=== PATIENT | male | born 1940 | race Caucasian/White ===

== ENCOUNTER 2018-03-05 10:21 | Inpatient (IN) ==
[~2018-03-05 10:21] MED LIST: Atropine Inj 1 MG/10 ML Syringe IV.PUSH ONE
[2018-03-05] MEDS ORDERED: Iohexol 350 MG/ML 100 ML Vial (for Cath Lab) IVCONTRAST ONE (10:22)
[2018-03-05 11:41] LABS: Baso % (Auto) 0.5 % (0.0-2.0); Eos # (Auto) 0.2 th/mm3 (0.0-0.4); Eos % (Auto) 2.8 % (0.0-4.0); Hematocrit 41.7 % (39.0-51.0); Hemoglobin 13.9 gm/dL (13.0-17.0); Lymph # (Auto) 2.8 th/mm3 (1.0-4.8); Lymph % (Auto) 31.7 % (9.0-44.0); Mean Corpuscular HGB Conc 33.4 % (32.0-36.0); Mean Corpuscular Hemoglobin 30.7 pg (27.0-34.0); Mean Corpuscular Volume 92.1 fL (80.0-100.0); Mean Platelet Volume 7.2 fL (7.0-11.0); Mono # (Auto) 0.5 th/mm3 (0.0-0.9); Mono % (Auto) 6.1 % (0.0-8.0); Neut # (Auto) 5.2 th/mm3 (1.8-7.7); Neut % (Auto) 58.9 % (16.0-70.0); Platelet Count 297 th/mm3 (150-450); Red Blood Count 4.53 mil/mm3 (4.50-5.90); Red Cell Distribution Width 13.6 % (11.6-17.2); White Blood Count 8.8 th/mm3 (4.0-11.0)
[2018-03-05 11:50] LABS: Activated Partial Thrombo Time 30.7 sec (24.3-30.1); INR 1.1 Ratio; Prothrombin Time 10.7 sec (9.8-11.6)
[2018-03-05 11:59] LABS: Calcium 8.8 mg/dL (8.5-10.1); Carbon Dioxide 27.7 meq/L (21.0-32.0); Potassium 3.8 meq/L (3.5-5.1)
[2018-03-05] MEDS ORDERED: Heparin/NS PF Inj 1,500 ML ONE (13:47)
[2018-03-05] MEDS ORDERED: Heparin 10,000 UNITS/10 ML Vial (for IV use) ONE (13:47)
[2018-03-05] MEDS ORDERED: fentaNYL Citrate Inj 100 MCG/2 ML Ampul ONE (13:47)
[2018-03-05] MEDS ORDERED: Lidocaine PF 1% Inj 30 ML Vial ONE (14:27)
--- NOTE | 2018-03-05 15:57 | CATHPROC ---
[facility] HIS Report Study Information Study Number Admission Scheduled Start Study Start [id number] Mar 05 2018 10:21AM 03/05/2018 Mar 05 2018 1:37PM [place] [facility] Cardiac Catheterization Admit Source Facility Department Other [facility] Physician and Clinical Staff Initial Jose Sun Waiter/Waitress Take Out Tom Dupont RN Recorder Sana Arceo,RT(R) Scrub Marie Pond,RT(R) Procedures Performed Procedure Location (Site) Vessel Name Angiogram LV Asc. Aorta (A) Aorta Angiogram LV LV Ventricle Coronary Angiograms LCA Left Coronary Wire insertion Fem Art (left) Femoral Art Wire insertion Fem Art (right) Femoral Art Equipment Time Field Account Director Description Size Mfg Part Number Used/Scraped [id number] 13:53 RECINOS JAQUEZ SWAN FILI CATHETER FR 7 Used *[id number] TRANSDUCER, TRUWAVE [id number] 13:53 RECINOS JAQUEZ * Used W/STOCKCOCK *[id number] TRANSDUCER, TRUWAVE [id number] 13:53 RECINOS JAQUEZ * Used W/STOCKCOCK *[id number] 534-576T *[id number] 534-548T *[id number] [id number] *[id number] WIRE, HYDROSTEER 150CM [id number] 14:25 DAIG[employer] 150CM Used ANGLED GLIDE *[id number] 13:53 Squla BLANKET,WARM AIR CCL * Used *[id number] 13:53 S[employer]ula PACK, CCL CUSTOM * Used *[id number] 13:53 Lakoo PACER PEN, SKIN DUAL W/ RULER * Used *[id number] 13:54 Handpay 30 BOB INDEFLATOR Used *[id number] [id number] 14:19 Handpay PIGTAIL ANG. CATHETER FR 5 Used *[id number] 13:54 Handpay SHEATH, FR6.5 PRELUDE 11CM FR 6.5 038ACT Used *[id number] 13:53 Handpay WIRE, 3MMJ .035 180CM 180CM Used *[id number] PROBE COVER, STERILE [id number] 13:53 [employer] MEDICAL * Used ULTRASOUND W/ GEL *[id number] 13:53 NAMIC MANIFOLD, 2 PORT * Used *[id number] 13:53 NAMIC MANIFOLD, 4 PORT * Used *[id number] 13:53 NAMIC TUBING, HIGH PRESSURE 48" 48" Used *[id number] 13:53 NYCOMED OMNIPAQUE, 350 MG, 150ML 150ML [id number] Used 14:16 NYCOMED OMNIPAQUE, 350 MG, 50ML 50ML [id number] Used 14:16 NYCOMED OMNIPAQUE, 350 MG, 50ML 50ML [id number] Used [id number] 13:53 TERUMO MEDICAL SHEATH, FR5 TERUMO (10CM) FR 5 Used *[id number] 13:53 TERUMO MEDICAL SHEATH, FR7 TERUMO (10CM) FR 7 Used *[id number] History: Current Medications Medication Dosage/Unit Route Frequency Last Date/Time Taken LOPRESSOR ASA History: Allergies Allergy Reaction No Known Allergies History: Risk Factors Family History of Hypertension Dyslipidemia Previous IA Previous Heart Failure Premature CAD Yes No No No No Prior Valve Prior PCI Prior CABG Surgery No No No Cerebrovascular Peripheral Artery Chronic Lung On Dialysis Diabetes Disease Disease Disease No Yes No No No History: Other Current Smoker Method Quit No Cigarettes 20 Years Ago Labs Hgb (g/dl) Hct (%) WBC (l/cumm) Platelets (thousands) 11.60-17.00 35.00-51.00 4.00-11.00 150.00-450.00 13.9 41.7 8.8 297 Glucose (mg/dl) BUN (mg/dl) Creatinine (mg/dl) BUN:Creatinine (1:x) 74.00-106.00 7.00-18.00 0.50-1.30 10.00-20.00 91 22 1.1 20 Na (meq/l) K (meq/l) 136.00-145.00 3.50-5.10 138 3.8 INR (PTT:PT) 0.90-1.10 1.1 CPK-MB (ng/ML) 0.50-3.60 Not Drawn Medication Medication Total Dose (Bolus/Oral) Medication Total Dosage/Unit 1% XYLOCAINE 40 mL FENTANYL 100 mcg HEPARIN 5000 units OXYGEN 1 l/min VERSED 3 mg Medications (Bolus/Oral) Medication Time Given Dosage/Unit Administered By Reason 1% XYLOCAINE 03/05/2018 2:07:00 PM 20 mL Marie Pond 20 mL 1% XYLOCAINE given in lab by Marie Pond, RT(R) in Right Groin via Subcutaneous. VERSED 03/05/2018 2:07:52 PM 2 mg Cresencio, Tom 2 mg VERSED given in lab by Tom Dupont RN in Left Antecubital via Peripheral IV. Ordered by Jose Styles. FENTANYL 03/05/2018 2:08:17 PM 50 mcg Cresencio, Tom 50 mcg FENTANYL given in lab by Tom Dupont RN in Left Antecubital via Peripheral IV. Ordered by Jose Fry. VERSED 03/05/2018 2:11:27 PM 1 mg Cresencio, Tom 1 mg VERSED given in lab by Tom Dupont RN in Left Antecubital via Peripheral IV. Ordered by Jose Styles. FENTANYL 03/05/2018 2:13:45 PM 50 mcg Cresencio, Tom 50 mcg FENTANYL given in lab by Tom Dupont RN in Left Antecubital via Peripheral IV. Ordered by Jose Fry. OXYGEN 03/05/2018 2:18:31 PM 1 l/min Cresencio, Tom 1 l/min OXYGEN given in lab by Tom Dupont RN via Nasal. 1% XYLOCAINE 03/05/2018 2:27:33 PM 20 mL Jose Abernathy 20 mL 1% XYLOCAINE given in lab by Jose Abernathy in Left Groin via Subcutaneous. HEPARIN 03/05/2018 2:31:05 PM 3000 units Cresencio, Tom 3000 units HEPARIN given in lab by Tom Dupont RN in Left Antecubital via Peripheral IV. Ordered by Jose Abernathy. HEPARIN 03/05/2018 2:48:51 PM 2000 units Cresencio, Tom 2000 units HEPARIN given in lab by Tom uDpont RN in Left Antecubital via Peripheral IV. Ordered by Jose Abernathy. Medication (Drip) Medication Time Given Dosage/Unit Concentration/Unit Diluent (ml) Solution IV Solutions 03/05/2018 1:47:37 PM 50 mL (IV) NaCl .9 IV Solutions given in lab by Tom Dupont RN in Left Antecubital via Peripheral IV. Pump/Drip Flow u sing NaCl .9. Initial Case Assessment Cardiovascular Chest Pain 0 Edema Present Skin color Skin None Normal Warm Dry Circulatory - Right Pulses Posterior Tibial Femoral 1 1 Scale (0,1,2,3,4,d) Circulatory - Left Pulses Posterior Tibial Femoral 1 1 Scale (0,1,2,3,4,d) Neurological State Oriented to time-place- Alert Moves all extremities person Chronological Log Time Study Chronological Log 13:41:05 Patient arrived via Bed. 13:47:15 Patient Name, D.O.B, / Armband Verified By R.N. 13:47:20 Consent signed by the physician and the patient and verified by the [facility] staff. 13:47:22 Pre-op and post- op instructions given; patient acknowledges understanding of instructions . 13:47:24 Presedation assessment performed by [facility] RN. 13:47:26 Patient has been NPO for More than 6Hrs. 13:47:27 Skin Breakdown- none per pt 13:47:28 Patient Warmer Placed on the Table. 13:47:30 Gala Prominences Protected 13:47:32 A # 20 IV was noted in the Antecubital (left). Grade = 0 13:47:37 IV Solutions given in lab by Tom Dupont, RN in Left Antecubital via Peripheral IV. Pump/ Drip Flow using NaCl .9. 13:47:38 History and physical on the chart or being dictated. Assessment: Initial Case, Chest Pain=0, Edema=None, Color=Normal, Skin = Warm, Dry Right Pulses: Post Tib=1, Femoral=1 13:47:39 Left Pulses: Post Tib=1, Femoral=1 Neurological: State=Alert, Ox3, ORELLANA Vitals capture started with the following parameters, Patient=Adult, Interval=5 min, Initial P clxlajb=967 mmHg, 13:52:57 Deflation Rate=5 mmHg, Cuff placed on Right Arm 13:53:40 HR=72 bpm, IMOH=638/75 mmhg, SpO2=97.0 %, Resp=20 B/min 13:55:08 Reference ECG taken 13:56:02 Bilateral groins prepped with 2% chlorhexidine, and draped after a 3 minute waiting time. 13:58:31 HR=56 bpm, TVCN=470/86 mmhg, SpO2=99.0 %, Resp=21 B/min 14:01:53 paged 14:03:34 HR=70 bpm, HSTJ=192/79 mmhg, BbM3=186.0 %, Resp=18 B/min 14:07:00 20 mL 1% XYLOCAINE given in lab by Marie Pond RT(R) in Right Groin via Subcutaneous. 14:07:52 2 mg VERSED given in lab by Tom Dupont RN in Left Antecubital via Peripheral IV. Ordered by Jose Abernathy. 14:08:17 50 mcg FENTANYL given in lab by Tom Dupont RN in Left Antecubital via Peripheral IV. Ord ered by Jose Abernathy. 14:09:04 FJOL=498/96 mmhg, SpO2=99.0 %, Resp=20 B/min 14:11:27 1 mg VERSED given in lab by Tom Dupont RN in Left Antecubital via Peripheral IV. Ordered by Jose Abernathy. 14:12:21 Pressure channel 1 zeroed. 14:13:18 MD arrived. 14:13:34 HR=69 bpm, RSMK=989/66 mmhg, SpO2=95.0 %, Resp=8 B/min 14:13:45 50 mcg FENTANYL given in lab by Tom Dupont RN in Left Antecubital via Peripheral IV. Ord ered by Jose Abernathy. 14:18:31 1 l/min OXYGEN given in lab by Tom Dupont RN via Nasal. 14:18:33 HR=62 bpm, NIBP=70/43 mmhg, SpO2=92.0 %, Resp=9 B/min 14:19:17 NIBP STAT measurement started. 14:19:43 HR=68 bpm, NIBP=77/47 mmhg, SpO2=97 %, Resp=8 B/min Time Out. Correct patient, correct procedure, correct physician, labs, allergies, and equipment verified with supervisor labor gang 14:20:47 team present. Fire risk assesment completed (see hard stop sheet for coding). Time Out Conc urred by MD and individual staff in procedure. 14:20:55 Case Start 14:21:54 Access site was Right Femoral Vein. 14:22:01 A SHEATH, FR7 TERUMO (10CM) FR 7 was advanced into the Fem Vein (right) using the Percutane ous technique. 14:23:26 HR=69 bpm, NIBP=82/57 mmhg, SpO2=99.0 %, Resp=10 B/min 14:24:41 Access site was Right Femoral Artery. 14:25:28 A WIRE, HYDROSTEER 150CM ANGLED GLIDE 150CM was inserted via Fem Art (right). 14::44 Wire removed 14:27:13 Unable to advance wire in right fem art access, access aborted, manual pressure held 14:27:33 20 mL 1% XYLOCAINE given in lab by Jose Abernathy in Left Groin via Subcutaneous. 14:28:27 HR=68 bpm, NIBP=90/57 mmhg, AcM2=528.0 %, Resp=8 B/min 14:29:01 Access site was Left Femoral Artery. 14:29:13 A WIRE, HYDROSTEER 150CM ANGLED GLIDE 150CM was inserted via Fem Art (left). 14:29:48 A SHEATH, FR5 TERUMO (10CM) FR 5 was advanced into the Fem Art (left) using the Percutaneou s technique. 14:31:01 A SWAN FILI CATHETER FR 7 was inserted via Fem Vein (right) 14:31:05 3000 units HEPARIN given in lab by Tom Dupont RN in Left Antecubital via Peripheral IV. Ordered by Jose Abernathy. 14:33:30 HR=67 bpm, NIBP=81/53 mmhg, SpO2=99.0 %, Resp=7 B/min 14:36:39 Pressure channel 2 zeroed. 14:38:29 HR=67 bpm, NIBP=79/49 mmhg, SpO2=99.0 %, Resp=17 B/min A PIGTAIL ANG. CATHETER FR 5 was advanced over a wire. OMNIPAQUE, 350 MG, 150ML 150ML was used for 14:39:05 injections. 14:39:23 [place] Wire removed 14:39:54 A WIRE, 3MMJ .035 180CM 180CM was inserted via Fem Art (left). 14:40:44 Wire removed Recorded Pressure: Ao, HR=69, Condition=Condition 1 14:41:52 (Aorta) Ao 88/50/66 14:42:38 The Asc. Aorta (A) was injected at 20 cc/sec for a total of 40. OMNIPAQUE, 350 MG, 50ML 50M L used. 14:43:29 HR=72 bpm, NIBP=86/55 mmhg, SpO2=99.0 %, Resp=16 B/min 14:45:23 A WIRE, 3MMJ .035 180CM 180CM was inserted via Fem Art (left). 14:46:28 Wire removed 14:47:06 Saturation: Site=Ao (Aorta) , O2=94.5 %, Hgb=13.9 gm/dl, Condition=Condition 1. Used in amadou culation. Recorded Pressure: LV, HR=71, Condition=Condition 1 14:48:02 (Left Ventricle) LV 119/5/13 14:48:30 HR=69 bpm, NIBP=99/61 mmhg, SpO2=99.0 %, Resp=14 B/min 14:48:41 Saturation: Site=PA (Pulmonary Artery) , O2=73.2 %, Hgb=13.9 gm/dl, Condition=Condition 1. Used in calculation. 14:48:51 2000 units HEPARIN given in lab by Tom Dupont RN in Left Antecubital via Peripheral IV. Ordered by Jose Abernathy. Recorded Pressure: LV, PCW, HR=71, Condition=Condition 1 14:48:57 (Left Ventricle) LV 126/6/13, (Pulmonary Capillary Wedge) PCW 15/13/10 Recorded Pressure: LV, MPA, HR=69, Condition=Condition 1 14:49:19 (Left Ventricle) LV 132/7/16, (Main Pulmonary Artery) MPA 29/13/21 Recorded Pressure: LV, RV, HR=70, Condition=Condition 1 14:50:09 (Left Ventricle) LV 133/7/19, (Right Ventricle) RV 38/0/7 14:50:42 Saturation: Site=RV (Right Ventricle) , O2=73 %, Hgb=13.9 gm/dl, Condition=Condition 1. Use d in calculation. 14:54:08 HR=69 bpm, POPS=273/67 mmhg, DcG9=107.0 %, Resp=10 B/min Thermo CO: CO=4.7 l/m, HR=70 bpm, Condition=Condition 1. Used in calculation. 14:54:21 Equipment: Description and Size=SWAN FILI CATHETER FR 7, Type=Bath Probe, CC=0.579 Injectant: Temp=19.0 - 22.0 Celsius, Volume=10.0 ml Thermo CO: CO=4.5 l/m, HR=71 bpm, Condition=Condition 1. Used in calculation. 14:54:55 Equipment: Description and Size=SWAN FILI CATHETER FR 7, Type=Bath Probe, CC=0.579 Injectant: Temp=19.0 - 22.0 Celsius, Volume=10.0 ml Thermo CO: CO=4.7 l/m, HR=70 bpm, Condition=Condition 1. Used in calculation. 14:55:23 Equipment: Description and Size=SWAN FILI CATHETER FR 7, Type=Bath Probe, CC=0.579 Injectant: Temp=19.0 - 22.0 Celsius, Volume=10.0 ml 14:57:48 Saturation: Site=RVm (Mid Right Ventricle) , O2=74.6 %, Hgb=13.9 gm/dl, Condition=Condition 1. Used in calculation. Recorded Pressure: LV, RV, HR=71, Condition=Condition 1 14:58:13 (Left Ventricle) LV 133/5/16, (Right Ventricle) RV 36/-1/6 14:58:34 HR=70 bpm, TGPE=697/71 mmhg, EyM2=436.0 %, Resp=15 B/min 14:58:50 Saturation: Site=IVC (Inferior Vena Cava) , O2=75.4 %, Hgb=13.9 gm/dl, Condition=Condition 1. Used in calculation. Recorded Pressure: LV, RA, HR=72, Condition=Condition 1 14:59:16 (Left Ventricle) LV 144/6/17, (Right Atrium) RA 4/3/2 14:59:32 Saturation: Site=Bladimir (Mid Right Atrium) , O2=75.7 %, Hgb=13.9 gm/dl, Condition=Condition 1. Used in calculation. 15:01:13 Saturation: Site=SVC (Superior Vena Cava) , O2=73.5 %, Hgb=13.9 gm/dl, Condition=Condition 1. Used in calculation. 15:03:05 Nyssa Fili Catheter Removed 15:03:39 HR=73 bpm, DBKZ=747/61 mmhg, SpO2=98.0 %, Resp=11 B/min 15:04:21 The LV was injected at 10 cc/sec for a total of 30. OMNIPAQUE, 350 MG, 50ML 50ML used. 15:06:00 A WIRE, 3MMJ .035 180CM 180CM was inserted via Fem Art (left). Recorded Pressure: LV, Ao, HR=73, Condition=Condition 1 15:07:57 (Left Ventricle) LV 150/8/18, (Aorta) Ao 118/59/85 15:08:34 HR=72 bpm, FQKU=140/70 mmhg, LiU4=401.0 %, Resp=13 B/min 15:11:40 Catheter was removed A JL 4.0 INFINITI CATHETER FR 5 was advanced over a wire. OMNIPAQUE, 350 MG, 150ML 150ML was us ed for 15:11:44 injections. 15:13:37 HR=69 bpm, YVJM=033/68 mmhg, OyO1=351.0 %, Resp=13 B/min 15:15:52 The LCA was injected and visualized at various angles. OMNIPAQUE, 350 MG, 150ML 150ML used . 15:18:36 HR=72 bpm, IBPX=758/82 mmhg, SpO2=97.0 %, Resp=12 B/min 15:21:02 Catheter was removed A AR MOD INFINITI CATHETER FR 5 was advanced over a wire. OMNIPAQUE, 350 MG, 150ML 150ML was us ed for 15:21:15 injections. 15:23:37 HR=74 bpm, AAUG=109/82 mmhg, SpO2=98 %, Resp=15 B/min 15:25:41 Catheter was removed A 3DRC INFINITI CATHETER FR 5 was advanced over a wire. OMNIPAQUE, 350 MG, 150ML 150ML was used for 15:25:49 injections. 15:27:33 Catheter was removed 15:27:34 Case End (Physician broke scrub) 15:28:40 HR=74 bpm, OHNF=816/76 mmhg, SpO2=99.0 %, Resp=16 B/min 15:33:39 HR=75 bpm, QEEM=775/76 mmhg, SpO2=97.0 %, Resp=17 B/min 15:34:36 In the Fem Vein (right) the SHEATH, FR7 TERUMO (10CM) FR [address] by Quadrat, [place]. 15:34:36 In the Fem Art (left) the SHEATH, FR5 TERUMO (10CM) FR [address] by Carolyn Abernathy. 15:38:27 Activated Clotting Time Drawn 15:38:42 HR=72 bpm, KGDK=292/76 mmhg, YfC0=278.0 %, Resp=16 B/min 15:42:12 Sterile dressing applied to site 15:42:13 No case complications noted. 15:42:15 Cine recording checked. 15:42:16 Holding Area notified. 15:42:27 A Left and Right Heart Cath was performed. 15:43:39 HR=74 bpm, QYTJ=171/81 mmhg, SpO2=99.0 %, Resp=24 B/min 15:45:40 ACT (Normal Range 90-180) = 248 15:48:05 Vitals capture stopped. 16:00:28 Patient moved to [facility] End Study - Contrast Media Used In Study Contrast Total Opened (mL) Total Used (mL) Total Wasted (mL) Omnipaque 250 155 95 End Study - Maximum Contrast Load Max Contrast Load (mL) 317.8 End Study - Radiation Exposure Fluoro Time (minutes) 14.1 End Study - Patient Disposition Complications Transferred To Interventional Outcome No Telemetry Bed No attempt made
[2018-03-05] MEDS ORDERED: Dextrose 50% in Water Syringe 50 ML ONE (17:38)
[2018-03-05] MEDS ORDERED: DOPamine 800 MG/500 ML Premix 800 MG/500 ML PLAST..BAG IV.CONT PRN (17:58)
[2018-03-05] MEDS ORDERED: ceFAZolin 2 GM Premix Inj 2 GM/50 ML PIGGYBACK IV.SIG SCH (18:00)
[2018-03-05] MEDS ORDERED: SODIUM CHLOR 0.9% IV.SIG SCH (18:00)
[2018-03-05] MEDS ORDERED: VANCOMYCIN IV.SIG SCH (18:00)
[2018-03-05 18:03] LABS: Baso % (Auto) 0.4 % (0.0-2.0); Eos # (Auto) 0.3 th/mm3 (0.0-0.4); Eos % (Auto) 2.7 % (0.0-4.0); Hematocrit 35.7 % (39.0-51.0); Hemoglobin 11.7 gm/dL (13.0-17.0); Lymph # (Auto) 3.8 th/mm3 (1.0-4.8); Lymph % (Auto) 39.9 % (9.0-44.0); Mean Corpuscular HGB Conc 32.9 % (32.0-36.0); Mean Corpuscular Hemoglobin 30.5 pg (27.0-34.0); Mean Corpuscular Volume 92.7 fL (80.0-100.0); Mono # (Auto) 0.4 th/mm3 (0.0-0.9); Mono % (Auto) 4.7 % (0.0-8.0); Neut # (Auto) 4.9 th/mm3 (1.8-7.7); Neut % (Auto) 52.3 % (16.0-70.0); Platelet Count 254 th/mm3 (150-450); Red Blood Count 3.85 mil/mm3 (4.50-5.90); Red Cell Distribution Width 13.5 % (11.6-17.2); White Blood Count 9.4 th/mm3 (4.0-11.0)
--- NOTE | 2018-03-05 18:13 | MR ---
cc: Jose Abernathy MD DATE: 03/05/2018 INDICATION: Worsening angina, atypical angina, class IV angina, severe aortic stenosis. PROCEDURE PERFORMED: 1. Retrograde left and right heart catheterization with left ventriculography, selective coronary angiography and thermodilution cardiac output determination. 2. Thoracic aortography including aortic root, ascending thoracic aorta, aortic arch and descending thoracic aorta. 3. Saturation run for evaluation of cardiac shunt. 4. Moderate sedation. ACCESS SITE: Right femoral vein and left femoral artery. Right femoral artery was severely diseased and the right iliac artery could not be negotiated retrogradely. EQUIPMENT USED: A 5-[place]icar[place] pigtail catheter, 5-[place]uan JL4 and AR modified coronary catheters, [place] catheter, 3DRC catheter. MEDICATIONS: Versed IV, fentanyl IV, heparin IV. CONTRAST: Omnipaque, 155. COMPLICATIONS: None. ESTIMATED BLOOD LOSS: Less than 10 mL. METHOD OF HEMOSTASIS: Manual compression. RESULTS: A. HEMODYNAMICS: Heart rate 77 beats per minute. Left ventricular end-diastolic pressure 12 mmHg. Left ventricle 150/12, aorta 118/61/83. There was no gradient between the apical and mid portion of the left ventricle. Mean aortic valve gradient 30 mmHg, peak gradient 32 mmHg, aortic valve area 0.76 cm2. Mean pulmonary capillary wedge pressure 10 mmHg. Pulmonary artery 33/13/21, right ventricle 33/3. Right atrium: Mean right atrial pressure 2 mmHg. Saturations: Aorta 94.5. Pulmonary artery 73.2. Right ventricle base 73.0 Right ventricle mid 74.6. IVC 75.4. Right atrium mid 75.7. SVC 73.5. B. LEFT VENTRICULOGRAPHY AND THORACIC AORTOGRAPHY: Ejection fraction 50% with apical akinesis, mild mitral regurgitation. There was evidence of trace aortic insufficiency. C. CORONARY ANGIOGRAPHY: Left main coronary artery diffuse 70% stenosis. Left anterior descending artery patent. First diagonal artery 70% ostial stenosis. Second diagonal artery is patent. Left circumflex artery is 80% in the proximal portion and is totally occluded in the midportion. OM1 has 70% ostial stenosis. Right coronary artery is totally occluded at its ostium, severely calcified and fills by left to right collaterals. DIAGNOSES: 1. 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 2. Borderline normal left ventricular systolic function. 3. Severe aortic stenosis. DISPOSITION: Mr. Alcantara was found to have evidence of severe multivessel coronary artery disease with severe stenosis of the left main coronary artery, total occlusion of the mid left circumflex artery and ostial right coronary artery with distal vessels partially filling by collaterals. There was also evidence of severe aortic stenosis. Cardiothoracic surgery was consulted for coronary artery bypass and aortic valve replacement. MD JAMEY Gonsalez/rw/john , 03:52 PM , 04:44 PM MTDAliyah
[2018-03-05] MEDS: Sod Chloride 0.9% Inj 1,000 ML IV.SIG SCH (18:34)
[2018-03-05] MEDS ORDERED: Metoprolol Tartrate 25 MG Tablet PO SCH (21:00)
--- NOTE | 2018-03-05 21:31 | P.CONCC ---
History of Present Illness Service: Critical Care Medicine Consult date: 03/05/18 Requesting Physician: Jose Abernathy Reason for Consult: symptomatic bradycardia Primary Care Provider: Anthony Keating DO Family Provider: Anthony Keating DO History of Present Illness: 78yM presents as rapid response for symptomatic bradycardia. I arrived at bedside in CPCU for patient with acute change in mental status. Per very brief chart review, patient had left and right heart catheterization with 70% left main, 80% circ, 100% RCA occlusions and severe aortic stenosis, mean gradient 31 mmHg per cath report. nurses at bedside pulling left femoral arterial sheath when patient suddenly had decreased level of consciousness and bradycardia down to HR 31. blood pressure checked manually 80 sbp. Patient was responsive but somnolent and endorsed sudden-onset fatigue. denies chest pain, sob. given active coronary lesions, I administered 100 mcg atropine to slowly raise heart rate without causing myocardial ischemia. heart rate improved to 70s and sbp improved to 110s-120s. patient's fatigue improved. I instructed nursing staff to move patient to CVICU, leave right femoral venous sheath in place in order to administer vasoactive substances if needed, ordered dopamine to keep HR > 60 , map > 65 mmHg. Also, sent stat cbc to rule out acute RP hemorrhage. Most likely etiology is vagal episode complicated by coronary ischemia and severe A.S. When I left the bedside, patient's symptoms had resolved with therapy. Due to the emergent nature of the consult, complete ROS is unobtainable and complete PMHx, PSHx, FHx, SocHx unobtainable and reviewed in the chart briefly. Review of Systems other (unobtainable due to emergent nature of consult) [facility] History History Provided By: Patient, Medical Record - Medical History Medical History: Medical History (Last Reviewed 03/05/18 @ 21:26 by Mario Rivera MD) Aortic insufficiency Aortic stenosis Hypertension Mitral regurgitation Murmur Skin cancer - Social History I have reviewed the patient's Social History: Yes - Tobacco History Smoking Status: Former smoker - Alcohol History How Often Do You Have a Drink Containing Alcohol: Never Medications and Allergies Active Medications: Active Medications Aspirin (Aspirin Chew) 81 mg PO DAILY TIM Hydrochlorothiazide (Hydrodiuril) 25 mg PO DAILY TIM Sodium Chloride (Ns Inj) 1,000 mls @ 30 mls/hr IV.SIG .Q24H TIM Last Admin: 03/05/18 18:34 Dose: Not Given Dopamine HCl/Dextrose (Dopamine 800 Mg/500 Ml Premix) 800 mg in 500 mls @ 7.864 mls/hr IV.CONT TITRATE PRN; Protocol PRN Reason: Per Protocol Metoprolol Tartrate (Lopressor) 25 mg PO BID TIM Sodium Chloride (Ns Flush) 2 ml IV.FLUSH BID TIM Sodium Chloride (Ns Flush) 2 ml IV.FLUSH PRN PRN PRN Reason: FLUSH AFTER USING IV ACCESS Terbutaline Sulfate (Brethine Inj) 1 mg SQ ONCE PRN PRN Reason: Extravasation Allergies Allergy/AdvReac Type Severity Reaction Status Date / Time No Known Allergies Allergy Unverified 03/05/18 11:24 Home Medications Medication Instructions Recorded Confirmed Type aspirin [Aspirin Low Dose] 81 mg PO DAILY 03/05/18 03/05/18 History coenzyme Q10 [CoQ-10] 200 mg PO DAILY 03/05/18 03/05/18 History hydrochlorothiazide 25 mg PO DAILY 03/05/18 03/05/18 History metoprolol tartrate 25 mg PO BID 03/05/18 03/05/18 History Physical Exam Vital signs: Vital Signs 03/05/18 11:09 Temperature 36.6 C Respiratory Rate 18 Blood Pressure 152/93 H Pulse Oximetry 99 Intake & Output 03/05/18 03/05/18 03/06/18 06:59 18:59 06:59 Intake Total 20 / 20 Balance 20 / 20 Weight 69.9 kg Intake: IV 20 / 20 Heparin/NS PF Inj 1,500 ML @ 0 20 / 20 mls/hr .ROUTE .[employer] ONE Rx#: [id number] Other: Weight On Admission 69.9 kg Narrative: gen: elderly male in distress, lying in bed heent: nc. at. perrl. mmm. neck: no jvd. trachea midline. chest: equal chest rise. nrb in place. spo2 98% cv: bradycardic rate of 31, regular rhythm. 12-lead EKG reviewed: sinus bradycardia. sbp 70s on my initial eval. abd: soft, nontender, nondistended, no guarding. extr: left groin with puncture site active pressure being held by nurse- recent arterial sheath pull. no evidence of hematoma. right venous sheath in place, no hematoma, dressing intact. extremities warm, well perfused. no edema. neuro: RASS -2. arouses to voice. follows commands. protects airway. Assessment and Plan - Assessment and Plan Plan: Assessment: 78yM with symptomatic bradycardia likely secondary to vagal response compounded by critical coronary ischemia and severe aortic stenosis. Active Problems: Symptomatic Bradycardia Severe aortic stenosis Critical multivessel coronary ischemia Plan: admit to ICU dopamine if needed to keep HR > 60, map > 65mmHg check cbc now and at midnight atropine if needed for further episodes of bradycardia telemetry agree with CT surgery consultation I have discussed this with Dr. Abernathy who agrees with the plan of care. Critical care will continue to follow while patient is in the ICU. Critical care time: 33 minutes, exclusive of separately billable procedures. specifically, actively managed hemodynamically unstable symptomatic bradycardia which was life-threatening.
--- NOTE | 2018-03-05 22:30 | ECG ---
Date Performed: 03/05/2018 Time Performed: 17:43:48 PTAGE: 78 years EKG: Sinus rhythm . Inferior T wave changes are nonspecific Abnormal ECG NO PREVIOUS TRACING DOCTOR: Jose Abernathy Interpretating Date/Time 03/05/2018 22:28:48
[2018-03-06 00:17] LABS: Hematocrit 36.6 % (39.0-51.0); Hemoglobin 12.3 gm/dL (13.0-17.0)
[2018-03-06] MEDS ORDERED: Metoprolol Tartrate 25 MG Tablet PO SCH (05:00)
[2018-03-06 05:38] LABS: Baso # (Auto) 0.1 th/mm3 (0.0-0.2); Baso % (Auto) 0.4 % (0.0-2.0); Eos # (Auto) 0.2 th/mm3 (0.0-0.4); Eos % (Auto) 1.4 % (0.0-4.0); Hematocrit 39.1 % (39.0-51.0); Hemoglobin 13.1 gm/dL (13.0-17.0); Lymph # (Auto) 2.4 th/mm3 (1.0-4.8); Lymph % (Auto) 19.7 % (9.0-44.0); Mean Corpuscular HGB Conc 33.4 % (32.0-36.0); Mean Corpuscular Hemoglobin 30.4 pg (27.0-34.0); Mean Corpuscular Volume 91.1 fL (80.0-100.0); Mean Platelet Volume 7.1 fL (7.0-11.0); Mono # (Auto) 0.7 th/mm3 (0.0-0.9); Neut # (Auto) 8.9 th/mm3 (1.8-7.7); Neut % (Auto) 72.5 % (16.0-70.0); Platelet Count 271 th/mm3 (150-450); Red Cell Distribution Width 13.7 % (11.6-17.2); White Blood Count 12.3 th/mm3 (4.0-11.0)
[2018-03-06 06:03] LABS: Calcium 8.1 mg/dL (8.5-10.1)
[2018-03-06] MEDS ORDERED: Acetaminophen 325 MG Tablet PO PRN (06:41)
[2018-03-06] MEDS ORDERED: Morphine Sulfate Inj 2 MG/ML Vial IV.PUSH PRN (06:41)
[2018-03-06] MEDS ORDERED: Bisacodyl 10 MG Supp RECTAL PRN (06:41)
[2018-03-06 07:48] LABS: Albumin 3.2 g/dL (3.4-5.0); Phosphorus 2.6 mg/dL (2.5-4.9)
--- NOTE | 2018-03-06 07:48 | P.PNCC ---
Subjective Subjective Remarks/Hospital Course: 78yM presents as rapid response for symptomatic bradycardia. I arrived at bedside in [facility] for patient with acute change in mental status. Per very brief chart review, patient had left and right heart catheterization with 70% left main, 80% circ, 100% RCA occlusions and severe aortic stenosis, mean gradient 31 mmHg per cath report. nurses at bedside pulling left femoral arterial sheath when patient suddenly had decreased level of consciousness and bradycardia down to HR 31. blood pressure checked manually 80 sbp. Patient was responsive but somnolent and endorsed sudden-onset fatigue. denies chest pain, sob. given active coronary lesions, I administered 100 mcg atropine to slowly raise heart rate without causing myocardial ischemia. heart rate improved to 70s and sbp improved to 110s-120s. patient's fatigue improved. I instructed nursing staff to move patient to CVICU, leave right femoral venous sheath in place in order to administer vasoactive substances if needed, ordered dopamine to keep HR > 60 , map > 65 mmHg. Also, sent stat cbc to rule out acute RP hemorrhage. Most likely etiology is vagal episode complicated by coronary ischemia and severe A.S. When I left the bedside, patient's symptoms had resolved with therapy. SUBJECTIVE: 03/06: Afebrile. Very difficult time attempting to explain and discussed with patient events of yesterday and plans for today. Afebrile. Currently normal sinus rhythm. Objective Vital Signs / I&O: Vital Signs 03/05/18 11:09 03/05/18 19:00 03/05/18 23:00 Temperature 97.8 F 97.7 F Pulse Rate 80 75 Respiratory Rate 18 16 12 Blood Pressure 152/93 H 121/70 123/75 Pulse Oximetry 99 97 95 03/06/18 03:00 Temperature 98 F Pulse Rate 71 Respiratory Rate 16 Blood Pressure 104/63 Pulse Oximetry 97 Intake & Output 03/05/18 03/06/18 03/06/18 18:59 06:59 18:59 Intake Total Output Total 1999 Balance -1999 Weight 69.9 kg 72.4 kg Intake: IV 20 / Heparin/NS PF Inj 1,500 ML @ 0 20 / 20 mls/hr .ROUTE .[facility] Rx#: [id number] Output: Urine 1999 Other: # Bowel Movements 0 Weight On Admission 69.9 kg Result Diagrams: 03/06/18 05:00 03/06/18 05:00 Objective Remarks: GENERAL: 70-year-old male resting in bed in no acute distress SKIN: Warm and dry. HEAD: Atraumatic. Normocephalic. EYES: Pupils equal and round about 3 mm bilaterally and reactive. No scleral icterus. No injection or drainage. ENT: No nasal bleeding or discharge. Mucous membranes pink and moist. NECK: Trachea midline. No JVD. CARDIOVASCULAR: Regular rate and rhythm. S1, S2. No S4. 2/6 systolic murmur right upper sternal border RESPIRATORY: No accessory muscle use. Clear to auscultation. Breath sounds equal bilaterally. GASTROINTESTINAL: Abdomen soft, non-tender, nondistended. Left inguinal hernia. MUSCULOSKELETAL: Extremities without clubbing, cyanosis, or edema. No obvious deformities. NEUROLOGICAL: Awake and alert. No obvious cranial nerve deficits. Motor grossly within normal limits. Five out of 5 muscle strength in the arms and legs. Normal speech. PSYCHIATRIC: Appropriate mood and affect; insight and judgment normal. Assessment and Plan - Assessment and Plan Plan: Neuro/Psych: THC use per reviewed H&P Acetaminophen 650 mg p.o. every 6 hours as needed fever Hydrocodone/acetaminophen 5/325 1 tablet every 4 hours as needed pain 1 through 5 Morphine sulfate 2 mg IV every 2 hours as needed pain 6 or 10 CV: Severe aortic stenosis Coronary artery disease Hyperlipidemia Essential hypertension Heart catheterization -70% left main, 70% diagonal, 80% left circumflex. 100 percent RCA. EF 50% with apical akinesis Currently on aspirin 81 mg daily Currently on hydrochlorothiazide 25 mg daily for hypertension Currently on atorvastatin [address] surgery evaluation Resp: Nasal cannula if indicated to maintain saturations greater than or equal to 90% Incentive spirometry while awake Chest x-ray pending GI: On cardiac diet Pantoprazole for GI prophylaxis Docusate serum/senna 1 tablet twice daily for bowel regimen : Straight cathetered every 6 hours as needed Endo: Sliding scale insulin Accu-Cheks to maintain euglycemia/aspart insulin low regimen Renal: Monitor urine output creatinine currently within normal limit accurate I's and O's Heme: Leukocytosis Monitor CBC daily. Follow trends per No indication for transfusion of blood products at this time ID: Monitor for signs and symptomatology infection Postprocedure antibiotics with cefazolin 2 g every 8 hours x3 bags per cardiology FEN: Replace electrolytes as clinically indicated MSK: Physical therapy evaluate and treat Access -Utilize peripheral IV. Central line if indicated Prophylaxis -GI -pantoprazole -DVT SCD/heparin subcu Level 2 follow-up
[2018-03-06 07:49] LABS: Total Protein 6.6 g/dL (6.4-8.2)
[2018-03-06 07:57] LABS: Thyroid Stimulating Hormone 3.7 uIU/mL (0.358-3.740)
[2018-03-06] MEDS ORDERED: Potassium Chlor 20 mEq Premix 20 MEQ/100 ML PIGGYBACK IV.SIG PRN ×2 (07:58)
[2018-03-06] MEDS ORDERED: Potassium Phosphate 500 MG Soluble Tablet PO PRN ×2 (07:58)
[2018-03-06] MEDS ORDERED: Potassium Chlor 40 mEq Premix 40 MEQ/100 ML PIGGYBACK IV.SIG PRN ×2 (07:58)
[2018-03-06] MEDS ORDERED: Magnesium Sulfate Inj 4 GM in Sodium Chlor 0.9% Inj 92 ML IV.SIG PRN (07:58)
[2018-03-06] MEDS ORDERED: Potassium Phosphate Inj 30 MMOL in Sodium Chlor 0.9% Inj 250 ML IV.SIG PRN (07:58)
[2018-03-06] MEDS ORDERED: Magnesium Oxide 400 MG Tablet PO PRN (07:58)
[2018-03-06] MEDS ORDERED: Potassium Chloride 25 MEQ Effervescent Tablet PO PRN (07:58)
[2018-03-06] MEDS ORDERED: Magnesium Sulfate Inj 2 GM in Sodium Chlor 0.9% Inj 96 ML IV.SIG PRN (07:58)
[2018-03-06] MEDS ORDERED: Dextrose 50% in Water 50 ML Vial IV.PUSH PRN ×2 (07:58→10:24)
[2018-03-06] MEDS ORDERED: Sodium Phosphate Inj 30 MMOL in Sodium Chlor 0.9% Inj 250 ML IV.SIG PRN (07:58)
[2018-03-06 09:39] LABS: Chol/HDL Ratio 5.85 Ratio; HDL Cholesterol 33.8 mg/dL (40.0-60.0); Troponin I 0.15 ng/mL (0.02-0.05)
--- NOTE | 2018-03-06 10:04 | XR ---
EXAM DATE: 03/06/2018 7:48 AM EDT AGE/SEX: 78 years / Male INDICATIONS: Chest pain. CLINICAL DATA: This is the patient's subsequent encounter. Patient reports that signs and symptoms h ave been present for 2 days and indicates a pain score of 0/10. MEDICAL/SURGICAL HISTORY: Hypertension. Inguinal hernia repair. COMPARISON: No prior exams available for comparison. FINDINGS: Mild diffuse interstitial prominence and indistinct central pulmonary vascularity. Cardiac silhouette is within normal limits. There is prominence of the mediastinum exaggerated by portable technique. B hamilton thorax is intact. CONCLUSION: 1. Indistinct central pulmonary vascularity may reflect pulmonary vascular congestion. 2. Prominent mediastinum exaggerated by portable technique. Consider formal PA and lateral views of the chest for better evaluation. Electronically signed by: Eric Quinteros MD 03/06/2018 10:03 AM EDT
[2018-03-06] MEDS: Heparin - SQ 10,000 UNITS/ML Vial SQ SCH ×2 (10:08→20:09)
[2018-03-06] MEDS: Senna/Docusate Sodium 8.6/50 MG Tablet PO SCH ×2 (10:08→20:08)
[2018-03-06] MEDS: hydroCHLOROthiazide 25 MG Tablet PO SCH (10:08)
[2018-03-06] MEDS: Insulin NovoLOG Aspart Correctional Sugar Inj SQ SCH ×3 (10:27→17:03)
[2018-03-06] MEDS ORDERED: Chlorhexidine 4% Topical 120 APPLIC/120 ML Bottle TOPICAL SCH (10:30)
[2018-03-06] MEDS: Sod Chloride 0.9% Inj 1,000 ML IV.SIG SCH (11:15)
--- NOTE | 2018-03-06 11:26 | MB ---
cc: Vandana Silva MD DATE: 03/06/2018 HISTORY OF PRESENT ILLNESS: A 78-year-old male patient of Dr. Phillip Keating, Dr. Abernathy, who apparently was evaluated by Dr. Abernathy per the request of Dr. Keating with a history of cardiac murmur. There is somewhat of an echo report from 01/28/2018, but there is no available actual report with gradients available, which showed severe aortic stenosis per the notes from Dr. Abernathy's office. He did undergo further evaluation which showed an ejection fraction of 50%, left main disease of 70%, diagonal 70%, the circumflex was 80%, the RCA was 100% filling from the left to right with collaterals. His aortic valve area of 0.76, pulmonary capillary wedge pressure of 10, PA pressure of 33/20, with a mean of 13, RV pressures of 33, RA pressures of 2. We were consulted due to severe aortic stenosis for aortic valve replacement and coronary artery bypass grafting. The patient was a rapid response following the catheterization yesterday for some bradycardia. He was given some atropine, which improved the heart rate and blood pressure. They left the venous sheath in place. He was also placed on some dopamine, which has been off since the mechatronics engineer hours. Currently, his blood pressure and vital signs are stable. PAST MEDICAL HISTORY: Significant for aortic stenosis, coronary artery disease, hypertension, history of CVA approximately 20-30 years ago. He had some issues with some short-term memory, but he does make his own decisions. He still drives. He has no weakness in either of his extremities. PAST SURGICAL HISTORY: Include bilateral hernia repair. He has had some skin cancer removed on his left shoulder. FAMILY HISTORY: Both parents . SOCIAL HISTORY: The patient single, no children, lives alone. Has a brother who is currently on vacation in [place]. He had prior alcohol problems, but he quit 20 years ago. Smoked in his 30s, but quit many years ago. He does smoke occasional marijuana, but quit 2 months ago. REVIEW OF SYSTEMS: GENERAL: No weight gain, weight loss. HEENT: No blurred vision, hearing loss. RESPIRATORY: No cough, shortness of breath. CARDIOVASCULAR: Denies any chest pain. Denies any claudication. GENITOURINARY: He has some occasional urinary frequency. GASTROINTESTINAL: No diarrhea, vomiting. CENTRAL NERVOUS SYSTEM: Positive for history of CVA. ENDOCRINE: No diabetes or hypothyroidism. PHYSICAL EXAMINATION: VITAL SIGNS: Blood pressure 104/60, heart rate is 70, temperature max 98, O2 saturation 98% on room air. GENERAL: The patient is awake, alert, in no acute distress. HEENT: Pupils are equal and reactive. Oral mucosa pink, moist. He has no teeth on the upper bridge. He does have some poor dentition on the lower, more so on the right lower. He has no loose teeth. He denies any kind of gum pain or teeth pain. NECK: Supple. No JVD. HEART: S1, S2 with a 3/6 systolic murmur. No rubs or gallops. LUNGS: Clear to auscultation. No wheezes, rales or rhonchi. ABDOMEN: Soft, nontender. No masses or organomegaly. EXTREMITIES: No cyanosis, clubbing, or edema. LABORATORY WORK: Shows hemoglobin 13, hematocrit of 39, white cell count of 12, platelet count of 271. Sodium 141, potassium 4.0, BUN is 17, creatinine 1.16, glucose 96, AST 19, ALT 17. Troponin 0.15. Triglycerides 142, cholesterol 198, LDL of 136. TSH of 3.70. INR of 1.0. Further testing pending to include carotid ultrasound, leg vein mapping, 2-D echocardiogram. IMPRESSION: This is again a 78-year-old male patient of Dr. Phillip Keating and Dr. Abernathy with multivessel coronary artery disease, ejection fraction of 50%. Also, aortic valve stenosis with a valve area of 0.76. We will obtain a 2D echocardiogram since we do not have any films to review. The catheterization films will be reviewed by Dr. Vandana Silva. Procedures, alternatives, and risks will be discussed with the patient and planning for surgery in the a.m. for aortic valve replacement and coronary artery bypass grafting x3. In the meantime, we will order chlorhexidine oral rinse and await further testing and radiological exams. Dictated by CARMELITA Fountain I reviewed the patient's history, imaging studies, and labs as well as performed a physical examination and agree with the above assessment and plan. MD ANNIKA Raines/rama , 10:42 AM , 10:53 AM SUZETTE
[2018-03-06] MEDS ORDERED: ceFAZolin 2 GM Premix Inj 2 GM/100 ML BAG IV.SIG SCH (12:42)
[2018-03-06] MEDS ORDERED: Sodium Chlor 0.9% Inj 77.5 ML, Papaverine Inj 60 MG, Nitroglycerin Inj 100 MCG, dilTIAZ... IRRIGATION SCH ×3 (13:00)
[2018-03-06] MEDS ORDERED: Insulin Regular (For Infusion) 100 UNIT in Sodium Chlor 0.9% Inj 99 ML IV.CONT PRN (13:00)
[2018-03-06] MEDS ORDERED: Sodium Chloride 0.9% Irr Bot 500 ML, ceFAZolin Inj 500 MG IRRIGATION SCH ×2 (13:00)
--- NOTE | 2018-03-06 13:03 | US ---
EXAM DATE: 03/06/2018 10:25 AM EDT AGE/SEX: 78 years / Male INDICATIONS: Pre-op cardiac surgery. CLINICAL DATA: This is the patient's initial encounter. Patient reports that signs and symptoms have been present for 1 day and indicates a pain score of 0/10. MEDICAL/SURGICAL HISTORY: . Aortic stenosis. Hypertension. Mitral regurgitation. Skin cancer. C oronary artery disease. . Bilateral hernia repair. Skin cancer removal. COMPARISON: No prior exams available for comparison. TECHNIQUE: Venous ultrasound of both lower extremities was performed from the inguinal ligament to t he proximal calf. Real-time, color Doppler and spectral tracing, compression and augmentation techni ques were used. FINDINGS: Right Leg: Normal compression of the deep venous system from the inguinal region to the proximal amadou f. No echogenic clot is seen. Normal response of the venous system to augmentation and respiration. Left Leg: Normal compression of the deep venous system from the inguinal region to the proximal calf . No echogenic clot is seen. Normal response of the venous system to augmentation and respiration. Other: None. CONCLUSION: No venous thrombosis is identified within either lower extremity. Electronically signed by: Benjamin Rodriguez MD 03/06/2018 1:01 PM EDT
--- NOTE | 2018-03-06 13:07 | US ---
EXAM DATE: 03/06/2018 10:25 AM EDT AGE/SEX: 78 years / Male INDICATIONS: Pre-op CABG. CLINICAL DATA: This is the patient's initial encounter. Patient reports that signs and symptoms have been present for 1 day and indicates a pain score of 0/10. MEDICAL/SURGICAL HISTORY: . Aortic stenosis. Hypertension. Mitral regurgitation. Skin cancer. C oronary artery disease. . Bilateral hernia repair. Skin cancer removal. COMPARISON: . VELOCITY PARAMETERS: ICA/CCA Ratio: Right 1.8 , Left UTO ICA: Right 138 cm/sec, Left UTO cm/sec CCA: Right 76 cm/sec, Left 109 cm/sec ECA: Right 141 cm/sec, Left 122 cm/sec Vertebral: Right 38 cm/sec antegrade, Left 83 cm/sec antegrade FINDINGS: Right Carotid: Moderate arteriosclerotic plaque is visualized.The waveforms are within normal limits . Left Carotid: Internal carotid artery appears occluded. The waveforms are within normal limits. Other: None. CONCLUSION: 1. Right Internal Carotid Artery: Findings indicate 50-69% stenosis. 2. Left Internal Carotid Artery: Occluded. Electronically signed by: Eric Quinteros MD 03/06/2018 1:05 PM EDT
--- NOTE | 2018-03-06 13:09 | US ---
EXAM DATE: 03/06/2018 10:25 AM EDT AGE/SEX: 78 years / Male INDICATIONS: Pre-op cardiac surgery. CLINICAL DATA: This is the patient's initial encounter. Patient reports that signs and symptoms have been present for 1 day and indicates a pain score of 0/10. MEDICAL/SURGICAL HISTORY: . Aortic stenosis. Hypertension. Mitral regurgitation. Skin cancer. C oronary artery disease. . Bilateral hernia repair. Skin cancer removal. [place] [facility] [place] 03/06/2018. . MEASUREMENTS: RIGHT THIGH: Proximal:__3 mm Mid:__ 3 mm Distal:__3 mm LEFT THIGH: Proximal:__3 mm Mid:__2 mm Distal:__3 mm RIGHT CALF: Proximal:__1 mm Mid:__1 mm Distal:__1 mm LEFT CALF: Proximal:__1 mm Mid:__1 mm Distal:__1 mm FINDINGS: The venous system of the lower extremities are patent by color Doppler imaging. Measurements of the leg veins (in mm) are listed above. CONCLUSION: 1. Lower extremity venous mapping, as above. Electronically signed by: Eric Quinteros MD 03/06/2018 1:08 PM EDT
[2018-03-06 13:10] LABS: Bilirubin,Urine Negative (Negative); Clarity,Urine Clear (Clear); Color,Urine Straw (Yellw/Straw); Glucose,Urine (UA) Negative (Negative); Leukocyte Esterase,Urine Negative (Negative); Nitrite,Urine Negative (Negative); Specific Gravity,Urine 1.009 (1.002-1.035)
--- NOTE | 2018-03-06 13:38 | P.PNCV ---
- Note Subjective/Hospital Course: pt seen and evaluated, full consult completed sts data discussed with pt RISK SCORES About the STS Risk Calculator Procedure: AV Replacement + CAB Risk of Mortality: 5.897% Morbidity or Mortality: 33.894% Long Length of Stay: 16.089% Short Length of Stay: 17.984% Permanent Stroke: 4.53% Prolonged Ventilation: 22.135% DSW Infection: 0.643% Renal Failure: 8.468% Reoperation: 14.074% Objective: Vital Signs - 24 hr 03/05/18 19:00 03/05/18 23:00 03/06/18 03:00 Temperature 97.7 F 98 F Pulse Rate 80 75 71 Respiratory Rate 16 12 16 Blood Pressure 121/70 123/75 104/63 Pulse Oximetry 97 95 97 03/06/18 07:00 03/06/18 08:20 03/06/18 11:00 Temperature 98 F 98.4 F Pulse Rate 82 94 H Respiratory Rate 18 18 Blood Pressure 130/88 137/84 Pulse Oximetry 97 98 95 Labs: Laboratory Results - last 12 hr 03/06/18 03/06/18 03/06/18 05:00 05:00 05:00 WBC 12.3 H RBC 4.30 L Hgb 13.1 Hct 39.1 MCV 91.1 MCH 30.4 MCHC 33.4 RDW 13.7 Plt Count 271 MPV 7.1 Neut % (Auto) 72.5 H Lymph % (Auto) 19.7 [place] % (Auto) 6.0 Eos % (Auto) 1.4 Baso % (Auto) 0.4 Neut # (Auto) 8.9 H Lymph # (Auto) 2.4 [place] # (Auto) 0.7 Eos # (Auto) 0.2 Baso # (Auto) 0.1 WBC Differential . Differential Comment Auto diff final Sodium 141 Potassium 4.0 Chloride 107 Carbon Dioxide 24.0 Anion Gap 10 BUN 17 Creatinine 1.16 Estimated GFR 61 L POC Glucose Random Glucose 96 Calcium 8.1 L Phosphorus 2.6 Magnesium 2.0 Total Bilirubin Direct Bilirubin Indirect Bilirubin AST ALT Alkaline Phosphatase Ammonia Total Creatine Kinase Troponin I Total Protein Albumin Triglycerides Cholesterol LDL Cholesterol, Calc HDL Cholesterol Cholesterol/HDL Ratio TSH 3.700 Urine Color Urine Clarity Urine pH Ur Specific [place] Urine Protein Urine Glucose (UA) Urine Ketones Urine Occult Blood Urine Nitrate Urine Bilirubin Urine Urobilinogen Ur Leukocyte Esterase Urine RBC Urine WBC Micro UA Comment Ur Microscopic Review Urine Culture Comments Blood Type Blood Type Recheck Antibody Screen MTS Gel Crossmatch 03/06/18 03/06/18 03/06/18 05:00 08:51 08:51 WBC RBC Hgb Hct MCV MCH MCHC RDW Plt Count MPV Neut % (Auto) Lymph % (Auto) [place] % (Auto) Eos % (Auto) Baso % (Auto) Neut # (Auto) Lymph # (Auto) [place] # (Auto) Eos # (Auto) Baso # (Auto) WBC Differential Differential Comment Sodium Potassium Chloride Carbon Dioxide Anion Gap BUN Creatinine Estimated GFR POC Glucose Random Glucose Calcium Phosphorus Magnesium Total Bilirubin 0.5 Direct Bilirubin 0.1 Indirect Bilirubin 0.4 AST 19 ALT 17 Alkaline Phosphatase 47 Ammonia Less than 10 L Total Creatine Kinase 102 Troponin I 0.15 H Total Protein 6.6 Albumin 3.2 L Triglycerides 142 Cholesterol 198 LDL Cholesterol, Calc 136 H HDL Cholesterol 33.8 L Cholesterol/HDL Ratio 5.85 TSH Urine Color Urine Clarity Urine pH Ur Specific [place] Urine Protein Urine Glucose (UA) Urine Ketones Urine Occult Blood Urine Nitrate Urine Bilirubin Urine Urobilinogen Ur Leukocyte Esterase Urine RBC Urine WBC Micro UA Comment Ur Microscopic Review Urine Culture Comments Blood Type Blood Type Recheck Antibody Screen MTS Gel Crossmatch 03/06/18 03/06/18 03/06/18 10:25 10:58 12:50 WBC RBC Hgb Hct MCV MCH MCHC RDW Plt Count MPV Neut % (Auto) Lymph % (Auto) [place] % (Auto) Eos % (Auto) Baso % (Auto) Neut # (Auto) Lymph # (Auto) [place] # (Auto) Eos # (Auto) Baso # (Auto) WBC Differential Differential Comment Sodium Potassium Chloride Carbon Dioxide Anion Gap BUN Creatinine Estimated GFR POC Glucose 118 H Random Glucose Calcium Phosphorus Magnesium Total Bilirubin Direct Bilirubin Indirect Bilirubin AST ALT Alkaline Phosphatase Ammonia Total Creatine Kinase Troponin I Total Protein Albumin Triglycerides Cholesterol LDL Cholesterol, Calc HDL Cholesterol Cholesterol/HDL Ratio TSH Urine Color Straw Urine Clarity Clear Urine pH 6.0 Ur Specific [place] 1.009 Urine Protein Negative Urine Glucose (UA) Negative Urine Ketones Negative Urine Occult Blood Negative Urine Nitrate Negative Urine Bilirubin Negative Urine Urobilinogen Less than 2 Ur Leukocyte Esterase Negative Urine RBC Less than 1 Urine WBC Less than 1 Micro UA Comment Culture not ind Ur Microscopic Review Not Reportable Urine Culture Comments Culture not ind Blood Type O Positive Blood Type Recheck Required Antibody Screen Negative MTS Gel Crossmatch See Detail Result Diagrams: 03/06/18 05:00 03/06/18 05:00
--- NOTE | 2018-03-06 14:41 | ECHRPT ---
Indication: CONCLUSIONS Normal left ventricular size. Wall thickness is normal. The left ventricular systolic function is normal with an estimated ejection fraction in the range of 55-60%. Possible small area of apical akinesis with no definite apical thrombus. [id number] mitral valve regurgitation. Mild to moderate mitral annular calcification is present. Trace aortic valve regurgitation. Mild aortic valve sclerosis is present. There is mild tricuspid valve regurgitation. The estimated pulmonary arterial pressure is 28 mmHg. BP: / HR: Rhythm: MEASUREMENTS (Male / Female) Normal Values Technical Quality: 2D ECHO LV Ejection Fraction MOD 4C 43.1 % LV Ejection Fraction 4C AL 46.1 % DOPPLER AV Peak Velocity 258.0 cm/s AV Peak Gradient 26.6 mmHg AV Mean Gradient 11.0 mmHg AV Velocity Time Integral 44.3 cm AI Peak Velocity 178.0 cm/s AI Peak Gradient 12.7 mmHg AI Pressure Half Time 342.0 ms LVOT Peak Velocity 96.3 cm/s LVOT Peak Gradient 3.7 mmHg LVOT Velocity Time Integral 21.7 cm Mitral E Point Velocity 53.8 cm/s Mitral A Point Velocity 98.7 cm/s Mitral E to A Ratio 0.5 TR Peak Velocity 209.0 cm/s TR Peak Gradient 17.5 mmHg Right Atrial Pressure 10.0 mmHg Pulmonary Artery Systolic Pressu 27.5 mmHg Right Ventricular Systolic Press 27.5 mmHg FINDINGS LEFT VENTRICLE Normal left ventricular size. Wall thickness is normal. The left ventricular systolic function is normal with an estimated ejection fraction in the range of 55-60%. Possible small area of apical akinesis with no definite apical thrombus. RIGHT VENTRICLE Normal right ventricular size and systolic function. LEFT ATRIUM The left atrial size is normal. RIGHT ATRIUM The right atrial size is normal. ATRIAL SEPTUM Normal atrial septal thickness without atrial level shunting by limited color doppler interrogation. AORTA The aortic root and proximal ascending aorta are normal in size on limited imaging. MITRAL VALVE [id number] mitral valve regurgitation. Mild to moderate mitral annular calcification is present. AORTIC VALVE Trace aortic valve regurgitation. Mild aortic valve sclerosis is present. TRICUSPID VALVE There is mild tricuspid valve regurgitation. The estimated pulmonary arterial pressure is 28 mmHg. PULMONARY VALVE No pulmonary valve regurgitation or stenosis. VESSELS The inferior vena cava is normal in size. PERICARDIUM No pericardial effusion. Tevin Ybarra MD (Electronically Signed) Final Date:06 March 2018 14:39
--- NOTE | 2018-03-06 15:44 | P.PNCA ---
Subjective Interval history: Patient denies any chest pain, pressure, palpitations, dizziness, edema or shortness of breath. Patient is very concerned about having coronary artery bypass surgery and is unsure whether or not he wants to proceed. Medications and Allergies Allergies Allergy/AdvReac Type Severity Reaction Status Date / Time No Known Allergies Allergy Unverified 03/05/18 11:24 Home Medications Medication Instructions Recorded Confirmed Type aspirin [Aspirin Low Dose] 81 mg PO DAILY 03/05/18 03/05/18 History coenzyme Q10 [CoQ-10] 200 mg PO DAILY 03/05/18 03/05/18 History hydrochlorothiazide 25 mg PO DAILY 03/05/18 03/05/18 History metoprolol tartrate 25 mg PO BID 03/05/18 03/05/18 History Active Medications: Active Medications Acetaminophen (Tylenol) 650 mg PO Q6H PRN PRN Reason: PAIN 1-10 AND/OR FEVER >101F Hydrocodone Bitart/Acetaminophen (Shirley 5/325) 1 tab PO Q4H PRN PRN Reason: PAIN SCALE 1 TO 5 Al Hydroxide/Mg Hydroxide (Milk Of Khang Figueroa) 30 ml PO Q12H PRN PRN Reason: Mild Constipation Albuterol (Albuterol Neb (Prn)) 2.5 mg NEB Q2HR NEB PRN PRN Reason: SHORTNESS OF BREATH/WHEEZING Aspirin (Aspirin Chew) 81 mg PO DAILY [facility] Last Admin: 03/06/18 10:07 Dose: 81 mg Atorvastatin Calcium (Lipitor) 40 mg PO HS [facility] Bisacodyl (Dulcolax Supp) 10 mg RECTAL DAILY PRN PRN Reason: SEVERE CONSITIPATION Chlorhexidine Gluconate (Chlorhexidine 2% Cloth) 3 pack TOPICAL DAILY@0400 PRN PRN Reason: Extra cloth needed Stop: 03/12/18 03:59 Chlorhexidine Gluconate (Chlorhexidine 2% Cloth) 3 pack TOPICAL DAILY@0400 [facility] Stop: 03/12/18 03:59 Chlorhexidine Gluconate (Hibiclens 4% Topical) 1 applicatio TOPICAL [employer] [facility] Stop: 03/12/18 10:25 Chlorhexidine Gluconate (Peridex 0.12% Oral Kit) 15 ml OROPHARYNG BID@0800, 2000 [facility] Sodium Chloride 77.5 ml/Papaverine HCl 60 mg/Nitroglycerin 100 mcg/Diltiazem HCl 100 mg 0 ml IRRIGATION [employer] [facility] Stop: 03/12/18 12:59 Sodium Chloride 500 ml/ (Cefazolin Sodium 500 mg) 0 ml IRRIGATION [employer] [facility] Stop: 03/12/18 12:59 Dextrose (D50w Vial) 50 ml IV.PUSH UNSCH PRN PRN Reason: PER HYPOGLYCEMIA PROTOCOL Dextrose (D50w Vial) 50 ml IV.PUSH UNSCH PRN PRN Reason: PER HYPOGLYCEMIA PROTOCOL Glucagon (Glucagon Inj) 1 mg OTHER PRN PRN PRN Reason: for Hypoglycemia Protocol Heparin Sodium (Porcine) (Heparin Inj) 5,000 units SQ Q12H [facility] Last Admin: 03/06/18 10:08 Dose: 5,000 units Hydrochlorothiazide (Hydrodiuril) 25 mg PO DAILY [facility] Last Admin: 03/06/18 10:08 Dose: 25 mg Sodium Chloride (Ns Inj) 1,000 mls @ 30 mls/hr IV.SIG .Q24H [facility] Last Admin: 03/06/18 11:15 Dose: Not Given Magnesium Sulfate 4 gm/ Sodium (Chloride) 100 mls @ 50 mls/hr IV.SIG UNSCH PRN PRN Reason: For Magnesium 0.9 - 1.1 mg/dL Magnesium Sulfate 2 gm/ Sodium (Chloride) 100 mls @ 50 mls/hr IV.SIG UNSCH PRN PRN Reason: For Magnesium 1.2 - 1.6 mg/dL Potassium Chloride (Kcl 40 Meq Premix Inj) 40 meq in 100 mls @ 25 mls/hr IV.SIG Q2H PRN PRN Reason: For Potassium 2.8 - 3.2 mEq/L Potassium Chloride (Kcl 20 Meq Premix Inj) 20 meq in 100 mls @ 50 mls/hr IV.SIG Q2H PRN PRN Reason: For Potassium 3.3 - 3.5 mEq/L Potassium Chloride (Kcl 40 Meq Premix Inj) 40 meq in 100 mls @ 25 mls/hr IV.SIG UNSCH PRN PRN Reason: For Potassium 3.3 - 3.5 mEq/L Potassium Chloride (Kcl 20 Meq Premix Inj) 20 meq in 100 mls @ 50 mls/hr IV.SIG Q2H PRN PRN Reason: For Potassium 2.8 - 3.2 mEq/L Potassium Phosphate 30 mmol/ (Sodium Chloride) 260 mls @ 42 mls/hr IV.SIG UNSCH PRN PRN Reason: SEE LABEL COMMENTS Sodium Phosphate 30 mmol/ (Sodium Chloride) 260 mls @ 42 mls/hr IV.SIG UNSCH PRN PRN Reason: For Phosphorus < 2.5 mg/dL Insulin Human Regular 100 unit (/ Sodium Chloride) 100 mls @ 3 mls/hr IV.CONT TITRATE PRN; Protocol PRN Reason: See Protocol Cefazolin/Sodium Chloride (Ancef 2 Gm Premix Inj) 2 gm in 100 mls @ 200 mls/hr IV.SIG [employer] [facility] Stop: 03/09/18 12:41 Insulin Aspart (Novolog Insulin Correctional Sugar Inj) 0 unit SQ ACHS [facility]; Protocol Last Admin: 03/06/18 11:15 Dose: Not Given Lactulose (Lactulose Liq) 30 ml PO DAILY PRN PRN Reason: SEVERE CONSITIPATION Magnesium Oxide (Mag-Ox) 800 mg PO UNSCH PRN PRN Reason: For Magnesium 1.2 - 1.6 mg/dL Metoprolol Tartrate (Lopressor) 12.5 mg PO [employer] [facility] Stop: 03/12/18 10:26 Morphine Sulfate (Morphine Inj) 2 mg IV.PUSH Q2H PRN PRN Reason: PAIN SCALE 6 TO 10 Ondansetron HCl (Zofran Inj) 4 mg IV.PUSH Q6H PRN PRN Reason: NAUSEA OR VOMITING Pantoprazole Sodium (Protonix) 40 mg PO DAILY [facility] Last Admin: 03/06/18 10:07 Dose: 40 mg Potassium Bicarb/Potassium Chloride (K-Lyte Cl Eff) 50 meq PO UNSCH PRN PRN Reason: For Potassium 3.3 - 3.5 mEq/L Potassium Phosphate (K-Phos Original) 2,000 mg PO Q4H PRN PRN Reason: Phosphorus Less Than 2.5 mg/dL Potassium Phosphate (K-Phos Original) 2,000 mg PO UNSCH PRN PRN Reason: SEE LABEL COMMENTS Senna/Docusate Sodium (Silvia-Colace) 1 tab PO BID [facility] Last Admin: 03/06/18 10:08 Dose: 1 tab Sennosides (Senokot) 17.2 mg PO Q12H PRN PRN Reason: Moderate Constipation Sodium Chloride (Ns Flush) 2 ml IV.FLUSH BID [facility] Sodium Chloride (Ns Flush) 2 ml IV.FLUSH PRN PRN PRN Reason: FLUSH AFTER USING IV ACCESS Sodium Chloride (Ns Flush) 2 ml IV.FLUSH BID TIM Sodium Chloride (Ns Flush) 2 ml IV.FLUSH PRN PRN PRN Reason: FLUSH AFTER USING IV ACCESS Physical Exam Vital signs: Vital Signs 03/05/18 19:00 03/05/18 23:00 03/06/18 03:00 Temperature 97.7 F 98 F Pulse Rate 80 75 71 Respiratory Rate 16 12 16 Blood Pressure 121/70 123/75 104/63 Pulse Oximetry 97 95 97 03/06/18 07:00 03/06/18 08:20 03/06/18 11:00 Temperature 98 F 98.4 F Pulse Rate 82 94 H Respiratory Rate 18 18 Blood Pressure 130/88 137/84 Pulse Oximetry 97 98 95 Intake & Output 03/05/18 03/06/18 03/06/18 18:59 06:59 18:59 Intake Total / 20 Output Total 1999 Balance -1999 Weight 69.9 kg 72.4 kg Intake: IV 20 / 20 Heparin/NS PF Inj 1,500 ML @ 0 20 / 20 mls/hr .ROUTE .[facility]-Ident[facility] ONE Rx#: [id number] Output: Urine 1999 Other: # Bowel Movements 0 Weight On Admission 69.9 kg - Constitutional no acute distress - Routine HEENT Exam Head: Present: normocephalic Eye: Present: PERRL ENT: Present: mucous membranes moist - Routine Neck Exam Present: full ROM - Routine Respiratory Exam Present: CTA bilaterally - Routine Cardiovascular Exam Present: S1, S2, murmur. Absent: gallop, rubs Comments: Sheath located in the right femoral artery status post cardiac catheterization on 03-05-18. - Routine Abdominal Exam Present: normoactive bowel sounds - Routine Skin Exam Present: intact - Routine Neurological Exam Present: oriented X3 - Detailed Neurological Exam: Coma Scale Eye Opening: Spontaneous Verbal Response: Oriented Motor Response: Obey commands [place] Coma Scale Total: 15 - Routine Psychiatric Exam Present: normal affect Results 03/06/18 05:00 03/06/18 05:00 Cardiac Enzymes 03/06/18 03/06/18 Range/Units 05:00 08:51 AST 19 (15-37) U/L Troponin I 0.15 H (0.02-0.05) ng/mL Coagulation 03/05/18 Range/Units 10:55 PT 10.7 (9.8-11.6) sec APTT 30.7 H (24.3-30.1) sec Lipids 03/06/18 Range/Units 08:51 Triglycerides 142 (42-150) mg/dL Cholesterol 198 (120-200) mg/dL HDL Cholesterol 33.8 L (40.0-60.0) mg/dL Cholesterol/HDL Ratio 5.85 Ratio CBC 03/05/18 03/05/18 03/06/18 Range/Units 10:55 15:50 00:00 WBC 8.8 9.4 (4.0-11.0) th/mm3 RBC 4.53 3.85 L (4.50-5.90) mil/mm3 Hgb 13.9 11.7 L D 12.3 L (13.0-17.0) gm/dL Hct 41.7 35.7 L 36.6 L (39.0-51.0) % Plt Count 297 254 (150-450) th/mm3 Neut # (Auto) 5.2 4.9 (1.8-7.7) th/mm3 Lymph # (Auto) 2.8 3.8 (1.0-4.8) th/mm3 [place] # (Auto) 0.5 0.4 (0.0-0.9) th/mm3 Eos # (Auto) 0.2 0.3 (0.0-0.4) th/mm3 Baso # (Auto) 0.0 0.0 (0.0-0.2) th/mm3 03/06/18 Range/Units 05:00 WBC 12.3 H (4.0-11.0) th/mm3 RBC 4.30 L (4.50-5.90) mil/mm3 Hgb 13.1 (13.0-17.0) gm/dL Hct 39.1 (39.0-51.0) % Plt Count 271 (150-450) th/mm3 Neut # (Auto) 8.9 H (1.8-7.7) th/mm3 Lymph # (Auto) 2.4 (1.0-4.8) th/mm3 [place] # (Auto) 0.7 (0.0-0.9) th/mm3 Eos # (Auto) 0.2 (0.0-0.4) th/mm3 Baso # (Auto) 0.1 (0.0-0.2) th/mm3 Comprehensive Metabolic Panel 03/05/18 03/06/18 03/06/18 Range/Units 10:55 05:00 05:00 Sodium 138 141 (136-145) meq/L Potassium 3.8 4.0 (3.5-5.1) meq/L Chloride 102 107 (98-107) meq/L Carbon Dioxide 27.7 24.0 (21.0-32.0) meq/L BUN 22 H 17 (7-18) mg/dL Creatinine 1.17 1.16 (0.60-1.30) mg/dL Calcium 8.8 8.1 L (8.5-10.1) mg/dL Direct Bilirubin 0.1 (0.0-0.2) mg/dL Indirect Bilirubin 0.4 (0.0-0.8) mg/dL AST 19 (15-37) U/L ALT 17 (12-78) U/L Alkaline Phosphatase 47 (45-117) U/L Total Protein 6.6 (6.4-8.2) g/dL Albumin 3.2 L (3.4-5.0) g/dL Intake and Output 03/06/18 03/06/18 03/06/18 06:59 14:59 22:59 Output Total 1999 Balance -1999 Output: Urine 1999 Other: # Bowel Movements 0 Weight 72.4 kg - Imaging and Cardiology Imaging: Impressions Chest X-Ray 03/06/18 07:48 CONCLUSION: 1. Indistinct central pulmonary vascularity may reflect pulmonary vascular congestion. 2. Prominent mediastinum exaggerated by portable technique. Consider formal PA and lateral views of the chest for better evaluation. Carotid Doppler Study 03/06/18 10:25 CONCLUSION: 1. Right Internal Carotid Artery: Findings indicate 50-69% stenosis. 2. Left Internal Carotid Artery: Occluded. Lower Extremity Ultrasound 03/06/18 10:25 CONCLUSION: 1. Lower extremity venous mapping, as above. Venous Doppler Study 03/06/18 10:25 CONCLUSION: No venous thrombosis is identified within either lower extremity. Assessment and Plan - Assessment (1) Coronary artery disease Code(s): I25.10 - Atherosclerotic heart disease of [place] coronary artery without angina pectoris Status: Acute (2) Symptomatic bradycardia Code(s): R00.1 - Bradycardia, unspecified Status: Acute - Plan Cardiac catheterization was performed on 03-05-18 which showed severe multivessel disease and severe . Consulted cardiothoracic to evaluate for possible bypass surgery and AVR. Patient currently sinus rhythm on monitor with stable blood pressure. Echocardiogram on 03-06-18 shows preserved left ventricular function with the EF of 55-60%. We will continue to follow patient during hospitalization. Patient was seen and evaluated by Dr. Abernathy who participated in care, management and decision-making. - Attending Attestation Patient seen and examined. I reviewed and agree with the evaluation and plan as presented. Cath with severe MV CAD and severe . CT surgery consulted.
[2018-03-06 16:51] LABS: Hemoglobin A1c 5.9 % (4.3-6.0)
[2018-03-06 22:47] VITALS: RESP 16
[2018-03-06 23:27] VITALS: BP 107/59; TEMP 98.5; O2SAT 99
[2018-03-07] MEDS ORDERED: Chlorhexidine Gluconate 2% 1 Pack (2 Cloths) TOPICAL SCH (04:00)
[2018-03-07] MEDS ORDERED: Chlorhexidine Gluconate 2% 1 Pack (2 Cloths) TOPICAL PRN (04:00)
[2018-03-07] MEDS: Insulin NovoLOG Aspart Correctional Sugar Inj SQ SCH (06:06)
[2018-03-07] MEDS: Chlorhexidine 0.12% Oral Kit 15 ML UDC OROPHARYNG SCH ×2 (06:06→09:54)
[2018-03-07] MEDS ORDERED: Sugammadex Inj 200 MG/2 ML Vial IV.PUSH ONE (06:28)
[2018-03-07] MEDS ORDERED: fentaNYL Citrate Inj 1,000 MCG/20 ML Vial ONE (06:28)
--- NOTE | 2018-03-07 07:34 | P.PNCC ---
Subjective Subjective Remarks/Hospital Course: 78yM presents as rapid response for symptomatic bradycardia. I arrived at bedside in [facility] for patient with acute change in mental status. Per very brief chart review, patient had left and right heart catheterization with 70% left main, 80% circ, 100% RCA occlusions and severe aortic stenosis, mean gradient 31 mmHg per cath report. nurses at bedside pulling left femoral arterial sheath when patient suddenly had decreased level of consciousness and bradycardia down to HR 31. blood pressure checked manually 80 sbp. Patient was responsive but somnolent and endorsed sudden-onset fatigue. denies chest pain, sob. given active coronary lesions, I administered 100 mcg atropine to slowly raise heart rate without causing myocardial ischemia. heart rate improved to 70s and sbp improved to 110s-120s. patient's fatigue improved. I instructed nursing staff to move patient to CVICU, leave right femoral venous sheath in place in order to administer vasoactive substances if needed, ordered dopamine to keep HR > 60 , map > 65 mmHg. Also, sent stat cbc to rule out acute RP hemorrhage. Most likely etiology is vagal episode complicated by coronary ischemia and severe A.S. When I left the bedside, patient's symptoms had resolved with therapy. 03/06: Afebrile. Very difficult time attempting to explain and discussed with patient events of yesterday and plans for today. Afebrile. Currently normal sinus rhythm. SUBJECTIVE: 03/07: Afebrile. Refusing laboratories. Wants to leave the hospital. Denies chest pain or shortness of breath currently. Currently dressed insulin clothing. Objective Vital Signs / I&O: Vital Signs 03/06/18 08:20 03/06/18 11:00 03/06/18 15:00 Temperature 98.4 F 98.0 F Pulse Rate 94 H 88 Respiratory Rate 18 18 Blood Pressure 137/84 125/73 Pulse Oximetry 98 95 96 03/06/18 19:00 03/06/18 23:00 Temperature 98 F 98.5 F Pulse Rate 95 H 80 Respiratory Rate 16 16 Blood Pressure 121/84 107/59 L Pulse Oximetry 97 99 Intake & Output 03/06/18 03/07/18 03/07/18 18:59 06:59 18:59 Intake Total 1400 / 1400 Output Total 1600 / 1600 Balance -200 / -200 Intake: Oral 1400 / 1400 Output: Urine 1600 / 1600 Other: Date of Last Bowel Movement 03/06/18 # Bowel Movements 0 Result Diagrams: 03/06/18 05:00 03/06/18 05:00 Imaging: Chest X-Ray 03/06/18 07:48 CONCLUSION: 1. Indistinct central pulmonary vascularity may reflect pulmonary vascular congestion. 2. Prominent mediastinum exaggerated by portable technique. Consider formal PA and lateral views of the chest for better evaluation. Carotid Doppler Study 03/06/18 10:25 CONCLUSION: 1. Right Internal Carotid Artery: Findings indicate 50-69% stenosis. 2. Left Internal Carotid Artery: Occluded. Lower Extremity Ultrasound 03/06/18 10:25 CONCLUSION: 1. Lower extremity venous mapping, as above. Venous Doppler Study 03/06/18 10:25 CONCLUSION: No venous thrombosis is identified within either lower extremity. Objective Remarks: GENERAL: 70-year-old male resting in chair in no acute distress SKIN: Warm and dry. HEAD: Atraumatic. Normocephalic. EYES: Pupils equal and round about 3 mm bilaterally and reactive. No scleral icterus. No injection or drainage. ENT: No nasal bleeding or discharge. Mucous membranes pink and moist. NECK: Trachea midline. No JVD. CARDIOVASCULAR: Regular rate and rhythm. S1, S2. No S4. 2/6 systolic murmur right upper sternal border RESPIRATORY: No accessory muscle use. Clear to auscultation. Breath sounds equal bilaterally. GASTROINTESTINAL: Abdomen soft, non-tender, nondistended. Left inguinal hernia. MUSCULOSKELETAL: Extremities without clubbing, cyanosis, or edema. No obvious deformities. NEUROLOGICAL: Awake and alert. No obvious cranial nerve deficits. Motor grossly within normal limits. Five out of 5 muscle strength in the arms and legs. Normal speech. PSYCHIATRIC: Appropriate mood and affect; insight and judgment normal. Assessment and Plan - Assessment and Plan Plan: Neuro/Psych: THC use per reviewed H&P Acetaminophen 650 mg p.o. every 6 hours as needed fever Hydrocodone/acetaminophen 5/325 1 tablet every 4 hours as needed pain 1 through 5 Morphine sulfate 2 mg IV every 2 hours as needed pain 6 or 10 CV: Severe aortic stenosis Coronary artery disease Hyperlipidemia Essential hypertension Heart catheterization -70% left main, 70% diagonal, 80% left circumflex. 100 percent RCA. EF 50% with apical akinesis Currently on aspirin 81 mg daily Currently on hydrochlorothiazide 25 mg daily for hypertension Currently on atorvastatin [address] surgery evaluation Resp: Nasal cannula if indicated to maintain saturations greater than or equal to 90% Incentive spirometry while awake Chest x-ray pending GI: On cardiac diet Pantoprazole for GI prophylaxis Docusate serum/senna 1 tablet twice daily for bowel regimen : Straight cathetered every 6 hours as needed Endo: Sliding scale insulin Accu-Cheks to maintain euglycemia/aspart insulin low regimen Renal: Monitor urine output creatinine currently within normal limit accurate I's and O's Heme: Leukocytosis Monitor CBC daily. Follow trends per No indication for transfusion of blood products at this time ID: Monitor for signs and symptomatology infection Postprocedure antibiotics with cefazolin 2 g every 8 hours x3 bags per cardiology FEN: Replace electrolytes as clinically indicated MSK: Physical therapy evaluate and treat Access -Utilize peripheral IV. Central line if indicated Prophylaxis -GI -pantoprazole -DVT SCD/heparin subcu Level 2 follow-up Stable from critical care medicine standpoint. Sign off. Order placed for hospitalist consult
--- NOTE | 2018-03-07 08:04 | P.PNCV ---
- Note Subjective/Hospital Course: pt seen and evaluated, full consult completed sts data discussed with pt RISK SCORES About the STS Risk Calculator Procedure: AV Replacement + CAB Risk of Mortality: 5.897% Morbidity or Mortality: 33.894% Long Length of Stay: 16.089% Short Length of Stay: 17.984% Permanent Stroke: 4.53% Prolonged Ventilation: 22.135% DSW Infection: 0.643% Renal Failure: 8.468% Reoperation: 14.074% 03/07/18 Patient refused surgery and wants to sign out AMA. He states he was awakened every hour and became angry with staff. He refused some medications as well. Objective: Vital Signs - 24 hr 03/06/18 08:20 03/06/18 11:00 03/06/18 15:00 Temperature 98.4 F 98.0 F Pulse Rate 94 H 88 Respiratory Rate 18 18 Blood Pressure 137/84 125/73 Pulse Oximetry 98 95 96 03/06/18 19:00 03/06/18 23:00 Temperature 98 F 98.5 F Pulse Rate 95 H 80 Respiratory Rate 16 16 Blood Pressure 121/84 107/59 L Pulse Oximetry 97 99 Labs: Laboratory Results - last 12 hr 03/06/18 03/06/18 10:58 21:16 POC Glucose 89 Blood Type O Positive Blood Type Recheck Required Antibody Screen Negative MTS Gel Crossmatch See Detail Result Diagrams: 03/06/18 05:00 03/06/18 05:00 The patient refuses surgery and would like to be discharged. I do not recommend this decision and will make sure Dr. Abernathy is informed. If he is discharged, I will see him in the office on Sunday to further discuss surgery.
[2018-03-07 08:38] VITALS: PULSE 100
[2018-03-07] MEDS: Heparin - SQ 10,000 UNITS/ML Vial SQ SCH (09:53)
[2018-03-07] MEDS: Senna/Docusate Sodium 8.6/50 MG Tablet PO SCH (09:55)
[2018-03-07] MEDS: hydroCHLOROthiazide 25 MG Tablet PO SCH (09:55)
--- NOTE | 2018-03-07 10:28 | P.DS ---
<Stefani Wren N - Last Filed: 03/11/18 14:30> Date of admission: 03/06/18 17:31 Primary care physician: Anthony Keating DO Attending physician on discharge: Mario Rivera Anticipated date of discharge: 03/07/18 Brief History from admission: Patient was admitted for chest pain. During hospitalization a cardiac cath was performed which showed severe multivessel coronary artery disease requiring cardiovascular surgical intervention. Patient is refusing surgery at this time and is requesting to be discharged home. Patient update on day of discharge: Patient refuses further workup, medications and surgical intervention. Risk factors of delaying surgery were discussed with patient. Patient verbalized understanding and still wants to be discharged home. Patient is to follow up with Dr. Silva in office for further discussion of cardiac surgery. DS: Diagnosis - Discharge Diagnosis (1) Coronary artery disease Status: Acute (2) Symptomatic bradycardia Status: Acute DS: Medications - Discharge Medications Prescriptions: isosorbide mononitrate 30 mg PO DAILY #30 tab DS: Summary - Time Spent with Patient Total time spent providing and/or coordinating discharge services: Less than 30 minutes (Patient refusing surgery at this time.) Exam Vital signs: Vital Signs 03/06/18 11:00 03/06/18 15:00 03/06/18 19:00 Temperature 98.4 F 98.0 F 98 F Pulse Rate 94 H 88 95 H Respiratory Rate 18 18 16 Blood Pressure 137/84 125/73 121/84 Pulse Oximetry 95 96 97 03/06/18 23:00 03/07/18 03:00 Temperature 98.5 F Pulse Rate 80 100 H Respiratory Rate 16 Blood Pressure 107/59 L Pulse Oximetry 99 Intake & Output 03/06/18 03/07/18 03/07/18 18:59 06:59 18:59 Intake Total 1400 / 1400 Output Total 1600 / 1600 675 / 675 Balance -200 / -200 -675 / -675 Intake: Oral 1400 / 1400 Output: Urine 1600 / 1600 675 / 675 Other: Date of Last Bowel Movement 03/06/18 # Bowel Movements 0 - Constitutional no acute distress - Routine HEENT Exam Head: Present: normocephalic Eye: Present: PERRL ENT: Present: mucous membranes moist - Routine Neck Exam Present: full ROM - Routine Respiratory Exam Present: CTA bilaterally - Routine Cardiovascular Exam Present: S1, S2, murmur. Absent: gallop, rubs - Routine Abdominal Exam Present: normoactive bowel sounds - Routine Extremities Exam Present: full ROM, pulses intact, normal capillary refill. Absent: cyanosis, clubbing, edema - Routine Skin Exam Present: intact - Routine Neurological Exam Present: oriented X3 Results Procedures completed during hospitalization: Cardiac Cath done, severe multivessel disease needing bypass surgery. Labs on day of discharge: Labs from last 24 hours 03/06/18 03/06/18 03/06/18 21:16 16:46 12:50 POC Glucose 89 122 H Hemoglobin A1c Urine Color Straw Urine Clarity Clear Urine pH 6.0 Ur Specific [place] 1.009 Urine Protein Negative Urine Glucose (UA) Negative Urine Ketones Negative Urine Occult Blood Negative Urine Nitrate Negative Urine Bilirubin Negative Urine Urobilinogen Less than 2 Ur Leukocyte Esterase Negative Urine RBC Less than 1 Urine WBC Less than 1 Micro UA Comment Culture not ind Ur Microscopic Review Not Reportable Urine Culture Comments Culture not ind Nasal Screen MRSA (PCR) Blood Type Blood Type Recheck Antibody Screen MTS Gel Crossmatch 03/06/18 03/06/18 03/06/18 12:50 11:00 10:58 POC Glucose Hemoglobin A1c 5.9 Urine Color Urine Clarity Urine pH Ur Specific [place] Urine Protein Urine Glucose (UA) Urine Ketones Urine Occult Blood Urine Nitrate Urine Bilirubin Urine Urobilinogen Ur Leukocyte Esterase Urine RBC Urine WBC Micro UA Comment Ur Microscopic Review Urine Culture Comments Nasal Screen MRSA (PCR) Not detected Blood Type O Positive Blood Type Recheck Required Antibody Screen Negative MTS Gel Crossmatch See Detail 03/06/18 10:25 POC Glucose 118 H Hemoglobin A1c Urine Color Urine Clarity Urine pH Ur Specific [place] Urine Protein Urine Glucose (UA) Urine Ketones Urine Occult Blood Urine Nitrate Urine Bilirubin Urine Urobilinogen Ur Leukocyte Esterase Urine RBC Urine WBC Micro UA Comment Ur Microscopic Review Urine Culture Comments Nasal Screen MRSA (PCR) Blood Type Blood Type Recheck Antibody Screen MTS Gel Crossmatch - Impressions ITS Impressions Chest X-Ray 03/06/18 07:48 CONCLUSION: 1. Indistinct central pulmonary vascularity may reflect pulmonary vascular congestion. 2. Prominent mediastinum exaggerated by portable technique. Consider formal PA and lateral views of the chest for better evaluation. Carotid Doppler Study 03/06/18 10:25 CONCLUSION: 1. Right Internal Carotid Artery: Findings indicate 50-69% stenosis. 2. Left Internal Carotid Artery: Occluded. Lower Extremity Ultrasound 03/06/18 10:25 CONCLUSION: 1. Lower extremity venous mapping, as above. Venous Doppler Study 03/06/18 10:25 CONCLUSION: No venous thrombosis is identified within either lower extremity. - Additional Comments Patient refusing surgery at this time. Will follow up with Dr. Gay in office. <Jose Abernathy - Last Filed: 03/12/18 22:38> Date of admission: 03/06/18 17:31 Primary care physician: Anthony Keating DO DS: Diagnosis - Discharge Diagnosis (1) Coronary artery disease Status: Acute (2) Symptomatic bradycardia Status: Acute DS: Summary Hospital Course: Patient admitted for cath and was found to have severe CAD and . Referred to CT surgery, but declined any procedures. Discharged home on conservative therapy. - Time Spent with Patient Total time spent providing and/or coordinating discharge services: Exam Vital signs: Vital Signs 03/06/18 19:00 03/06/18 23:00 03/07/18 03:00 Temperature 98 F 98.5 F Pulse Rate 95 H 80 100 H Respiratory Rate 16 16 Blood Pressure 121/84 107/59 L Pulse Oximetry 97 99 Intake & Output 03/06/18 03/07/18 03/07/18 18:59 06:59 18:59 Intake Total 1400 / 1400 Output Total 1600 / 1600 675 / 675 Balance -200 / -200 -675 / -675 Intake: Oral 1400 / 1400 Output: Urine 1600 / 1600 675 / 675 Other: Date of Last Bowel Movement 03/06/18 # Bowel Movements 0 Results Labs on day of discharge: Labs from last 24 hours 03/06/18 03/06/18 21:16 10:58 POC Glucose 89 Blood Type O Positive Blood Type Recheck Required Antibody Screen Negative MTS Gel Crossmatch See Detail - Impressions ITS Impressions Chest X-Ray 03/06/18 07:48 CONCLUSION: 1. Indistinct central pulmonary vascularity may reflect pulmonary vascular congestion. 2. Prominent mediastinum exaggerated by portable technique. Consider formal PA and lateral views of the chest for better evaluation. Carotid Doppler Study 03/06/18 10:25 CONCLUSION: 1. Right Internal Carotid Artery: Findings indicate 50-69% stenosis. 2. Left Internal Carotid Artery: Occluded. Lower Extremity Ultrasound 03/06/18 10:25 CONCLUSION: 1. Lower extremity venous mapping, as above. Venous Doppler Study 03/06/18 10:25 CONCLUSION: No venous thrombosis is identified within either lower extremity. Discharge Plan - Discharge Order Discharge Orders: Discharge Order (Routine); Ordered 03/07/18 Ordered By: Jose Abernathy Cardiology Clear for Discharge (Routine); Ordered 03/07/18 Ordered By: Stefani Wren - Discharge Details Discharge Comment: Patient is refusing surgery at this time and is wanting to leave. Will follow up with Dr. Silva next week to discuss heart surgery. Rx given for Imdur 30mg and atorvastatin 80mg. - Physicians Team Primary Care Provider: Anthony Keating Attending Provider: Jose Abernathy Other Providers: Vandana Silva MD ; Jojo Crespo MD ; Jb Pulido MD - Rxs /Orders / Referrals /Forms Prescriptions: New atorvastatin 40 mg Tablet 80 mg PO HS RF: 0 isosorbide mononitrate 30 mg Tablet Extended Release 24 Hr 30 mg PO DAILY Qty: 30 RF: 0 Continue aspirin [Aspirin Low Dose] 81 mg Tablet,Delayed Release (Dr/Ec) 81 mg PO DAILY coenzyme Q10 [CoQ-10] 100 mg Capsule 200 mg PO DAILY metoprolol tartrate 25 mg Tablet 25 mg PO BID Discontinued hydrochlorothiazide 25 mg Tablet 25 mg PO DAILY Ambulatory Orders / Order Sets / DME: Echo 2D Comp with doppler (Routine) Timeframe: 2 Weeks Location: Determined by Patient Ordered By: Sunshine Ferrara XR chest 2V PA&LAT (Routine) Timeframe: 2 Weeks Location: Determined by Patient Ordered By: Sunshine Ferrara Basic Metabolic Panel (Routine) Timeframe: 2 Weeks Location: Determined by Patient Ordered By: Sunshine Ferrara Complete Blood Count NO Diff (Routine) Timeframe: 2 Weeks Location: Determined by Patient Ordered By: Sunshine Ferrara Referrals: Vandana Silva MD [Physician] - 03/12/18 2:30 pm Anthony Keating DO [Primary Care Provider] - See Instructions - Discharge Instructions Patient Printed Instructions: Heart Catheterization (DC) Additional Instructions: PREVENA Single Use Negative Wound Therapy System Caregiver Instruction Sheet 1. A Prevena dressing system was applied to the chest incision during surgery , to promote wound healing. It works via a suction device (negative pressure wound therapy) to remove low to moderate levels of exudate (drainage) and infectious materials. We recommend that the device stay in place for up to seven days, from day of surgery. 2. Day of Surgery 03/07/18 Day of Removal __03/14/18 3. The dressing should only be removed by a health cattle care worker. Please arrange removal of device to coincide with Home Health visit and or with Nursing staff at Rehab 4. If skin reddening or irritation of skin occurs, or excessive drainage, please notify the Cardiovascular Surgeons office at [phone]. 5. Light showering is permissible; however the pump should be disconnected and placed in safe location, where it will not get wet. The dressing should not be exposed to direct spray or submerged in water. No bath tub / shower only. Ensure the end of the tubing attached to the dressing is facing down so that water does not enter the top of the tube. 6. To remove Prevena dressing: press purple button to turn off device / remove the suction. Then disconnect the tubing from the pump. The fixation strips should be stretched away from the skin and the dressing lifted at one corner and peeled back until it has been fully removed. 7. After removal, it is ok to shower daily using liquid dial soap and clean wash cloth, rinse and pat dry, and leave incision open to air dry. For any concerns regarding Prevena dressing, and or wounds, please contact Lisa Casas, patient navigator at [phone] or notify the Cardiovascular Surgeons office at [phone]. Incentive spirometry Q1 hr x 10, while awake, also use acapella device hourly whole awake Sternal Breast Bone Precautions: NO pushing or pulling, ( pt must use sternal pillow to support chest with all activities and with coughing ( takes up to 3 months breast bone to heal ) Daily incision care: ok to shower daily, no tub bath. Wash all incisions with liquid dial soap, clean wash cloth to each site, rinse and pat dry. Observe for any signs of infection, such as drainage which is dark yellow, richter, green or foul smelling. Immediately report to the surgeon any drainage from the chest incision, or legs, and for any abnormal drainage from the chest tube sites. Notify surgeon if any temp >101.5 degrees F. When specialty dressing removed/ or if you do not have one, continue to shower daily as above, then rinse and pat incision dry and paint with betadine daily x 5 days. Allow steri strips to fall off if you have any. Avoid lotions, creams, salves, oils, etc. for the first month Please see attached forms for additional instructions regarding post Open Heart specialty wound vacuum dressings. STEVE or Prevena , Dressing to be removed by Nursing staff on ___03/14/18____ For Dr. Silva patients , please obtain CBC, BMP, PA & Lat CXR in 2 weeks, results to Dr. Silva ( prescription will be given) ( ) (Tele: [phone]) , Valve replacement pts will need 2decho in 2 weeks with results to Dr. Silva . Please obtain 2 d echo at your machine maintenance technician office if possible F/U appointment: as per DC instructions: PCP in 2 weeks, CV surgeon 2 weeks, Geographic Information System Analyst 3-4 weeks For any questions regarding incisions/ dressing / meds / post op care or above Symptoms, Sunday 8am-5pm Heart & Vascular Surgery Office ( Dr. Betts & Dr. Silva), After Hours / Nights (5pm -8am) Weekends and Holidays Please call [facility] Cardiac Inter[facility] Unit (C[facility]) Charge Nurse
== END 2018-03-07 10:25 | disposition home or self-care (01) ==
LOC: HDOC 10:21 → HDIC 10:24 → HCPC 16:52 → HCVI 17:59
PROVIDERS: ADMIT Internal Medicine Interventional Cardiology; ATTEND Internal Medicine Interventional Cardiology

== ENCOUNTER 2018-03-18 07:30 | Inpatient (IN) ==
[2018-03-19] MEDS ORDERED: Metoprolol Tartrate 25 MG Tablet PO SCH (05:00)
[2018-03-19] MEDS ORDERED: Insulin Regular (For Infusion) 100 UNIT in Sodium Chlor 0.9% Inj 99 ML IV.CONT PRN ×2 (05:29→12:40)
[2018-03-19] MEDS ORDERED: Dextrose 50% in Water 50 ML Vial IV.PUSH PRN ×2 (05:29→12:40)
[2018-03-19] MEDS ORDERED: Sodium Chloride 0.9% Irr Bot 500 ML, ceFAZolin Inj 500 MG IRRIGATION SCH ×2 (05:30)
[2018-03-19] MEDS ORDERED: Chlorhexidine 4% Topical 120 APPLIC/120 ML Bottle TOPICAL SCH (05:30)
[2018-03-19] MEDS ORDERED: Sodium Chlor 0.9% Inj 77.5 ML, Papaverine Inj 60 MG, Nitroglycerin Inj 100 MCG, dilTIAZ... IRRIGATION SCH ×3 (05:30)
[2018-03-19] MEDS ORDERED: Metoprolol Tartrate 25 MG Tablet ONE (05:32)
[2018-03-19] MEDS ORDERED: Chlorhexidine Gluconate 2% 1 Pack (2 Cloths) TOPICAL ONE (05:45)
[2018-03-19] MEDS ORDERED: Sodium Chlor 0.9% Inj 500 ML IV.CONT ONE ×2 (05:45→07:30)
[2018-03-19] MEDS ORDERED: ceFAZolin 2 GM Premix Inj 2 GM/50 ML PIGGYBACK IV.SIG SCH (06:00)
[2018-03-19] MEDS ORDERED: MethylPREDNISolone Sod Succinate Inj 125 MG/2 ML Vial ONE (06:24)
[2018-03-19] MEDS ORDERED: Heparin - SQ 10,000 UNITS/ML Vial ONE (06:24)
[2018-03-19] MEDS ORDERED: ceFAZolin 2 GM Premix Inj 2 GM/50 ML PIGGYBACK IV.SIG ONE (06:25)
[2018-03-19] MEDS ORDERED: Heparin 10,000 UNITS/10 ML Vial (for IV use) ONE (07:27)
[2018-03-19] MEDS ORDERED: Albumin Human 25% Inj 50 ML IV.SIG ONE (07:27)
[2018-03-19] MEDS ORDERED: Protamine Sulfate Inj 50 MG/5 ML Vial IV.CONT ONE (07:30)
[2018-03-19] MEDS ORDERED: Artificial Tears Opth Oint 3.5 GM Tube EACH EYE ONE (07:30)
[2018-03-19] MEDS ORDERED: Dexmedetomidine Inj 200 MCG/2 ML Vial IV.CONT ONE (07:30)
[2018-03-19] MEDS ORDERED: Heparin - SQ 10,000 UNITS/ML Vial SQ ONE (07:30)
[2018-03-19] MEDS ORDERED: Sodium Chlor 0.9% Inj 250 ML IV.CONT ONE (07:30)
[2018-03-19] MEDS ORDERED: Phenylephrine/NS 1000 MCG/10ML Syringe IV.PUSH ONE (07:30)
[2018-03-19] MEDS ORDERED: CUST1000P IRRIGATION ONE (08:09)
[2018-03-19] MEDS ORDERED: Potassium Chloride Inj 40 MEQ/20 ML Vial ONE (08:10)
--- NOTE | 2018-03-19 10:05 | P.PNCV ---
- Note Subjective/Hospital Course: 78-year-old male patient of Dr. Phillip Keating, Dr. Abernathy, who was initially seen 03/06/18. Hx exertional dyspnea and chest pain, HX of cardiac murmur He did undergo further evaluation which showed an ejection fraction of 50%, left main disease of 70%, diagonal 70%, the circumflex was 80%, the RCA was 100% filling from the left to right with collaterals. His aortic valve area of 0.76 , pulmonary capillary wedge pressure of 10, PA pressure of 33/20, with a mean of 13, RV pressures of 33, RA pressures of 2. We were consulted due to severe aortic stenosis for aortic valve replacement and coronary artery bypass grafting. PAST MEDICAL HISTORY: Significant for aortic stenosis, coronary artery disease, hypertension, history of CVA approximately 20-30 years ago. He had some issues with some short-term memory, but he does make his own decisions. He still drives. He has no weakness in either of his extremities. pt declined immediate surgery, and wanted to go home, and re-evaluate timing for surgery, he was later seen in the office by Dr Silva re-evaluated for CABG possible AVR 03/19 pt electively admitted for surgery Objective: Vital Signs - 24 hr 03/19/18 05:45 Temperature 98.1 F Pulse Rate 90 Respiratory Rate 18 Blood Pressure 167/99 H Pulse Oximetry 98 Labs: Laboratory Results - last 12 hr 03/19/18 06:05 Blood Type O Positive Antibody Screen Negative MTS Gel Crossmatch See Detail
[2018-03-19] MEDS ORDERED: Magnesium Sulfate Inj 2 GM in Sodium Chlor 0.9% Inj 96 ML IV.SIG PRN ×4 (12:40)
[2018-03-19] MEDS ORDERED: Clevidipine Inj 25 MG/50 ML VIAL IV.CONT PRN (12:40)
[2018-03-19] MEDS ORDERED: Post-op Orders (for Pharmacy) OTHER STA (12:40)
[2018-03-19] MEDS ORDERED: Calcium Chloride Inj 1 GM/10 ML Syringe IV.PUSH PRN (12:40)
[2018-03-19] MEDS ORDERED: Metoprolol Inj 5 MG/5 ML Vial IV.PUSH PRN (12:40)
[2018-03-19] MEDS ORDERED: RESP: Racemic Epinephrine 2.25% 0.5 ML Neb NEB PRN (12:40)
[2018-03-19] MEDS ORDERED: Dexmedetomidine Inj 200 MCG in Sodium Chlor 0.9% Inj 48 ML IV.CONT PRN (12:40)
[2018-03-19] MEDS ORDERED: Potassium Chlor 20 mEq Premix 20 MEQ/100 ML PIGGYBACK IV.SIG PRN ×2 (12:40)
--- NOTE | 2018-03-19 13:03 | P.OP ---
- Preoperative Diagnosis (1) Aortic stenosis (2) Diastolic CHF (3) Dyspnea (4) Coronary artery disease (5) Aortic insufficiency Postoperative Diagnosis: same Date of procedure: 03/19/18 Procedure: AVR with a 21 [place] pericardial valve CABG x 4 CAVANAUGH to LAD - good SVG to PDA - good SVG to OM1 - good SVG tr D1 - good KANDY EVH Implants: 21 [place] Pericardial tissue valve Anesthesia: GETA Surgeon: Vandana Silva MD Deicer Kit Assembler: Sanjuana Sykes Pathology: other (Aortic valve leaflets) Operation and Findings: Cross-clamp time 114 minutes Cardiopulmonary bypass time 131 minutes Drains 36 [place] mediastinum and 32 [place] left pleural chest tubes Findings: The patient had a moderately calcified trileaflet aortic valve which appeared rheumatic. At the conclusion of the procedure, intraoperative KANDY showed a well-seated aortic valve with no perivalvular leaks. Left ventricular function was normal. Disposition: The patient was transferred to the CVICU in stable, but guarded condition. Operation in detail: After adequate general anesthesia, the patient was prepped and draped in the usual manner. A median sternotomy was performed and electrocautery was used to obtain hemostasis. Left internal mammary artery was procured as a pedicle from the 7th ribs to the 1st rib in the usual manner. Simultaneously, the left greater saphenous vein was procured using a minimally invasive technique. The vein was prepared for anastomosis and the leg wound was irrigated and closed in 2 layers. The pericardium was opened and the distal mammary artery was instrumented for anastomosis after adequate heparinization for cardiopulmonary bypass. The heart was instrumented for cardiopulmonary bypass in the usual manner. Antegrade and retrograde Custodiol cardioplegia were used. The left ventricle was vented through the right superior pulmonary vein. The patient was placed on cardiopulmonary bypass and target vessels were identified. An aortic cross- clamp was applied and the heart was arrest is using cold blood antegrade cardioplegia. Retrograde cardioplegia was also administered on induction. After adequate arrest, the PDA was opened with a [place] blade and found to be a 1.5 millimeter good target. The saphenous vein was approximated to the PDA artery using a running 7-0 Prolene suture. The vein was measured for length and orientation and the proximal anastomosis was performed using a running 5-0 Prolene suture after creating an aortotomy with a 5 mm punch. The 1st circumflex marginal artery was opened with a [place] blade and found to be a 1.5 millimeter good target. The saphenous vein was approximated to the artery using a running 7-0 Prolene suture. The vein was measured for length and orientation and the proximal anastomosis was performed using a running 5-0 Prolene suture after creating an aortotomy with a 5 mm punch. The 1st diagonal artery was opened with a [place] blade and found to be a 1.5 millimeter good target. The saphenous vein was approximated to the artery using a running 7-0 Prolene suture. The vein was measured for length and orientation and suspended from the pericardium. The distal LAD was then opened with a [place] blade and found to be a 1-1/2 millimeters good target. The left internal mammary artery was approximated to the LAD using a running 7 0 Prolene suture. The pedicle was tacked to the epicardium using interrupted 5 0 silk suture. Antegrade cardioplegia was administered following which the aorta was vented and opened above the sinotubular ridge. The valve appeared to be rheumatic. There was moderate calcification. Aortic valve was excised sharply and the annulus was decalcified using rongeurs. The annulus was sized to a 21 [place] pericardial bioprosthetic valve which was seated using several interrupted 2-0 Tycron pledgeted horizontal mattress sutures. After seating the valve and securing the sutures, the aorta was repaired in 2 layers using running 4-0 Prolene suture. The patient was placed in steep Trendelenburg position. The aorta was vented and the proximal anastomosis to the D1 graft was performed using a running 5-0 Prolene suture after creating an aortotomy with a 5 millimeter punch. The aorta and left ventricle were vented and the aortic cross-clamp was removed for a total cross-clamp time of 114 minutes. The heart resumed a bradycardic rhythm which eventually converted to a sinus rhythm after several minutes. The heart was filled allowed to eject. The aortic valve replacement was then assessed by intraoperative KANDY. The valve was found to be well seated with no perivalvular leak. Left ventricular function was noted to be normal. The patient was weaned from cardiopulmonary bypass for total bypass run of 131 minutes. Protamine was administered to reverse the heparin and all cannulae were removed without incident. A 36 [place] mediastinal/ 32 [place] left pleural chest tubes were positioned and each was secured to the skin with a 0 silk suture. The operative field was then examined again for hemostasis which was obtained using electrocautery. The wound was then closed in layers by approximating the sternal tables with interrupted number 6 stainless steel wires following which the presternal fashion was approximately around a 1. PDS suture. The wound was copiously irrigated. The subcutaneous tissue was approximated using a running 2- 0 Vicryl suture and the skin was approximated with running 4-0 Monocryl subcuticular stitch. All sponge and instrument counts were correct at the close of the procedure and the patient was transported the CVICU in stable, but guarded condition. Vandana Silva M.D., F.A.C.C., F.A.C.S.
[2018-03-19] MEDS ORDERED: fentaNYL Citrate Inj 250 MCG/5 ML Ampul ONE (13:10)
[2018-03-19] MEDS ORDERED: Albumin Human 5% Inj 250 ML IV.SIG ONE (13:13)
[2018-03-19] MEDS: Albumin Human 5% Inj 250 ML IV.SIG PRN ×2 (13:26→14:47)
[2018-03-19] MEDS: Amiodarone 200 MG Tablet PO SCH ×2 (13:27→22:00)
[2018-03-19] MEDS ORDERED: DOPamine 400 MG/250 ML Premix 400 MG/250 ML BAG IV.CONT ONE (13:32)
--- NOTE | 2018-03-19 13:51 | XR ---
EXAM DATE: 03/19/2018 12:40 PM EDT AGE/SEX: 78 years / Male INDICATIONS: Post CABG. CLINICAL DATA: This is the patient's initial encounter. Patient reports that signs and symptoms have been present for 1 day and indicates a pain score of Nonresponsive. MEDICAL/SURGICAL HISTORY: . Hypertension. Stroke, aortic stenosis, mitral regurgitation, skin c ancer, . hernia repair COMPARISON: [facility] [place], CHEST 2V PA&LAT, 03/14/2018. . FINDINGS: A single AP portable supine view of the chest was obtained and demonstrates the patient is status pos t interval median sternotomy. Endotracheal tube is in place with the tip 3 cm above the candi. A jey ogastric tube is been placed and is seen coursing through the esophagus and into the stomach. There i s a mediastinal chest tube and left-sided chest tube in place with no pneumothorax. Mild streaky opac ity is present in both lungs with no focal consolidation or effusion. The heart size is at the upper limits of normal. There is been placement of a left subclavian central venous catheter with the tip p rojected over the superior vena cava. CONCLUSION: 1. Status post interval median sternotomy. 2. Intubation and placement of chest tubes with no pneumothorax. 3. Mild streaky opacity in both lungs with no focal consolidation. Electronically signed by: Franklin Mendez MD 03/19/2018 1:50 PM EDT
[2018-03-19] MEDS: Calcium Chloride Inj 1 GM in Sodium Chlor 0.9% Inj 100 ML IV.SIG PRN (14:52)
[2018-03-19] MEDS ORDERED: Phenylephrine Inj 40 MG in Dextrose 5% in Water Inj 496 ML IV.CONT PRN ×2 (15:00)
[2018-03-19] MEDS ORDERED: DOPamine 800 MG/500 ML Premix 800 MG/500 ML PLAST..BAG IV.CONT PRN (15:00)
[2018-03-19] MEDS: Potassium Chlor 20 mEq Premix 20 MEQ/100 ML PIGGYBACK IV.SIG PRN ×2 (16:00→17:59)
[2018-03-19] MEDS: fentaNYL Citrate Inj 100 MCG/2 ML Ampul IV.PUSH PRN ×2 (16:38→19:51)
[2018-03-20] MEDS: Calcium Chloride Inj 1 GM in Sodium Chlor 0.9% Inj 100 ML IV.SIG PRN (03:20)
--- NOTE | 2018-03-20 05:36 | XR ---
EXAM DATE: 03/20/2018 5:00 AM EDT AGE/SEX: 78 years / Male INDICATIONS: Short of breath. CLINICAL DATA: This is the patient's subsequent encounter. Patient reports that signs and symptoms h ave been present for 2 days and indicates a pain score of 0/10. MEDICAL/SURGICAL HISTORY: Hypertension. Stroke, aortic stenosis, mitral regurgitation, skin can cer, CABG. COMPARISON: [facility] [place], CHEST 1V SINGLE AP, 03/19/2018. . FINDINGS: Portable AP view of the chest demonstrates a normal-sized cardiac silhouette with calcification of th e aorta. Patient is post median sternotomy and valve replacement. Left subclavian central line, media stinal drain, and left chest tube remain present. No pneumothorax is identified. Endotracheal tube an d nasogastric tube have been removed. Multiple EKG lines overlie the patient. Lungs are underinflated with mild bibasilar opacity likely representing atelectasis. CONCLUSION: Mild atelectasis at the lung bases. Left chest tube remains present and no pneumothorax is visualized . Electronically signed by: Benjamin Rodriguez MD 03/20/2018 5:34 AM EDT
[2018-03-20] MEDS: Amiodarone 200 MG Tablet PO SCH ×3 (06:41→21:32)
[2018-03-20 06:55] LABS: Hematocrit 30.9 % (39.0-51.0); Hemoglobin 10.6 gm/dL (13.0-17.0); Mean Corpuscular HGB Conc 34.2 % (32.0-36.0); Mean Corpuscular Hemoglobin 30.7 pg (27.0-34.0); Mean Corpuscular Volume 89.8 fL (80.0-100.0); Mean Platelet Volume 7.5 fL (7.0-11.0); Platelet Count 170 th/mm3 (150-450); Red Blood Count 3.44 mil/mm3 (4.50-5.90); Red Cell Distribution Width 13.7 % (11.6-17.2); White Blood Count 16.5 th/mm3 (4.0-11.0)
[2018-03-20 07:16] LABS: Calcium 8.1 mg/dL (8.5-10.1); Carbon Dioxide 22.6 meq/L (21.0-32.0); Magnesium 2.5 mg/dL (1.5-2.5); Potassium 4.3 meq/L (3.5-5.1)
[2018-03-20] MEDS ORDERED: Sod Phosphate/Sod Biphosphate (Adult) Enema 133 ML Bottle RECTAL PRN (08:42)
[2018-03-20] MEDS ORDERED: Dextrose 50% in Water 50 ML Vial IV.PUSH PRN (08:42)
[2018-03-20] MEDS ORDERED: Bisacodyl 10 MG Supp RECTAL PRN (08:42)
[2018-03-20] MEDS: Multivitamin/Minerals Therapeutic Tablet PO SCH (09:26)
--- NOTE | 2018-03-20 09:56 | P.PNCV ---
- Note Subjective/Hospital Course: 78-year-old male patient of Dr. Phillip Keating, Dr. Abernathy, who was initially seen 03/06/18. Hx exertional dyspnea and chest pain, HX of cardiac murmur He did undergo further evaluation which showed an ejection fraction of 50%, left main disease of 70%, diagonal 70%, the circumflex was 80%, the RCA was 100% filling from the left to right with collaterals. His aortic valve area of 0.76 , pulmonary capillary wedge pressure of 10, PA pressure of 33/20, with a mean of 13, RV pressures of 33, RA pressures of 2. We were consulted due to severe aortic stenosis for aortic valve replacement and coronary artery bypass grafting. PAST MEDICAL HISTORY: Significant for aortic stenosis, coronary artery disease, hypertension, history of CVA approximately 20-30 years ago. He had some issues with some short-term memory, but he does make his own decisions. He still drives. He has no weakness in either of his extremities. pt declined immediate surgery, and wanted to go home, and re-evaluate timing for surgery, he was later seen in the office by Dr Silva re-evaluated for CABG possible AVR 03/19 pt electively admitted for surgery Date of procedure: 03/19/18 Procedure: AVR with a 21 Whitmore pericardial valve CABG x 4 CAVANAUGH to LAD - good SVG to PDA - good SVG to OM1 - good SVG tr D1 - good KANDY L EVH Implants: 21 Whitmore Pericardial tissue valve extubated after surgery 03/20 up in chair on 6 liter simple face mask , wean 02 as tolerated gentle diuresis , weaning off dopamine, start low dose BB this evening OOB , PT transfer to stepdown Objective: Vital Signs - 24 hr 03/19/18 13:00 03/19/18 14:00 03/19/18 15:00 Temperature 98.6 F 96 F L 95.8 F L Pulse Rate 77 76 84 Respiratory Rate 14 14 16 Blood Pressure 99/72 L 123/76 110/73 Pulse Oximetry 94 L 95 95 03/19/18 15:35 03/19/18 15:39 03/19/18 16:00 Temperature 96 F L Pulse Rate 82 Respiratory Rate 14 Blood Pressure 104/72 Pulse Oximetry 92 L 93 L 97 03/19/18 17:00 03/19/18 17:26 03/19/18 18:00 Temperature 96.2 F L Pulse Rate 86 94 H Respiratory Rate 15 14 Blood Pressure 103/65 106/68 Pulse Oximetry 97 94 L 96 03/19/18 18:41 03/19/18 19:00 03/19/18 20:00 Temperature 97.7 F Pulse Rate 90 91 H Respiratory Rate 18 20 Blood Pressure 99/68 L 113/73 Pulse Oximetry 94 L 99 99 03/19/18 20:52 03/19/18 21:00 03/19/18 22:00 Temperature Pulse Rate 88 89 Respiratory Rate 20 18 Blood Pressure 113/77 131/85 Pulse Oximetry 98 98 99 03/19/18 23:00 03/20/18 00:00 03/20/18 01:00 Temperature 98.3 F Pulse Rate 91 H 88 88 Respiratory Rate 22 18 22 Blood Pressure 118/74 109/58 L 117/74 Pulse Oximetry 98 98 98 03/20/18 02:00 03/20/18 03:00 03/20/18 04:00 Temperature 98.4 F Pulse Rate 94 H 81 73 Respiratory Rate 18 18 18 Blood Pressure 113/72 123/70 120/73 Pulse Oximetry 98 95 95 03/20/18 05:00 03/20/18 06:00 03/20/18 08:54 Temperature Pulse Rate 90 97 H Respiratory Rate 20 22 Blood Pressure 135/81 138/51 L Pulse Oximetry 97 97 96 03/20/18 09:20 Temperature Pulse Rate Respiratory Rate 16 Blood Pressure Pulse Oximetry GENERAL: A&O x 3 SKIN: Warm and dry. prevena dressing to chest / martha wrap left leg HEAD: Normocephalic. EYES: No scleral icterus. No injection or drainage. NECK: Supple, trachea midline. No JVD or lymphadenopathy. CARDIOVASCULAR: Regular rate and rhythm without murmurs, gallops, or rubs. RESPIRATORY: Breath sounds equal bilaterally. No accessory muscle use. diminished in bases / chest tube to wall suction, no air leak GASTROINTESTINAL: Abdomen soft, non-tender, nondistended. MUSCULOSKELETAL: No cyanosis, or edema. BACK: Nontender without obvious deformity. No CVA tenderness. Labs: Laboratory Results - last 12 hr 03/19/18 03/19/18 03/20/18 22:35 23:26 00:41 WBC RBC Hgb Hct MCV MCH MCHC RDW Plt Count MPV Sodium Potassium Chloride Carbon Dioxide Anion Gap BUN Creatinine Estimated GFR POC Glucose 130 H 112 H 86 Random Glucose Calcium Magnesium 03/20/18 03/20/18 03/20/18 02:17 03:40 06:05 WBC 16.5 H RBC 3.44 L Hgb 10.6 L Hct 30.9 L MCV 89.8 MCH 30.7 MCHC 34.2 RDW 13.7 Plt Count 170 D MPV 7.5 Sodium Potassium Chloride Carbon Dioxide Anion Gap BUN Creatinine Estimated GFR POC Glucose 116 H 105 Random Glucose Calcium Magnesium 03/20/18 03/20/18 03/20/18 06:05 06:22 07:44 WBC RBC Hgb Hct MCV MCH MCHC RDW Plt Count MPV Sodium 140 Potassium 4.3 Chloride 105 Carbon Dioxide 22.6 Anion Gap 12 BUN 20 H Creatinine 0.87 Estimated GFR 85 L POC Glucose 107 121 H Random Glucose 104 Calcium 8.1 L Magnesium 2.5 03/20/18 08:33 WBC RBC Hgb Hct MCV MCH MCHC RDW Plt Count MPV Sodium Potassium Chloride Carbon Dioxide Anion Gap BUN Creatinine Estimated GFR POC Glucose 114 H Random Glucose Calcium Magnesium Result Diagrams: 03/20/18 06:05 03/20/18 06:05 Telemetry: NSR - Plan (3) Coronary artery disease Plan: ASA, statin, BB , amiodarone gentle diuresis OOB, wean 02 as tolerated transfer to [facility] for [facility]hab [place] / [place] with [facility] (5) Diastolic CHF Plan: gentle diuresis (3) Coronary artery disease Qualifiers: Coronary Disease-Associated Artery/Lesion type: [place] artery
--- NOTE | 2018-03-20 10:01 | P.DCO ---
- Diagnosis (1) Aortic stenosis Status: Acute (2) Diastolic CHF Status: Acute (3) Dyspnea Status: Acute (4) S/P AVR (aortic valve replacement) Status: Acute (5) S/P CABG x 4 Status: Acute (6) Coronary artery disease Status: Acute (7) History of CVA (cerebrovascular accident) Status: Chronic - Physical Therapy Order: Evaluate and treat - Home Health Nursing Order: Medical education, Signs/symptoms of disease process, Wound care and dressing changes, Nursing assessment with vital signs Instructions: Heart and Vascular Surgery patients *Special attention to sternal dressing Mandatory frequency Assess and evaluation, 4 days in a row The next week 3X week 2 times a week for 4 weeks 1 time a week for 5 weeks Schedule Heart and Vascular patients for full 60 day certification period Initial visit Review Open Heart Surgery Discharge Instructions (Sternal precautions, Activity, Elastic hose, Incision care, Driving, Incentive spirometry, Smoking, [place], Work and other) Need Betadine to paint incision Medication reconciliation Importance of follow up care/ check on appointments Make calendar record temperature daily When to call [facility] nurse, review instructions, phone list Incentive Spirometry, demonstration Visit 1- Begin discharge instruction for patient family and/ or caregiver using teach back method- Signs and symptoms of infection Disease characteristics Medicines and side effects Foods and nutrition/ appetite Infection control/ hand washing/ hygiene Visit 2- Continue teaching Discharge instructions- include additional information on smoking cessation , sternal dressing (sternal vac) Visit 3- Continue teaching- Cough and deep breathing, incision monitoring. Choose my plate Visit 4- Continue teaching- Discuss limitations Discuss how they are feeling Discuss progress toward goals Remaining visits- continue teaching and monitoring For any questions please call : Sunday 8am-5pm Heart & Vascular Surgery Office ( Dr. Betts & Dr. Silva), After Hours / Nights (5pm -8am) Weekends and Holidays Please call [facility] ([facility]) Charge Nurse PREVENA Single Use Negative Wound Therapy System Caregiver Instruction Sheet 1. A Prevena dressing system was applied to the chest incision during surgery , to promote wound healing. It works via a suction device (negative pressure wound therapy) to remove low to moderate levels of exudate (drainage) and infectious materials. We recommend that the device stay in place for up to seven days, from day of surgery. 2. Day of Surgery__03/19/18 Day of Removal ____03/26/18 3. The dressing should only be removed by a health point of care technician. Please arrange removal of device to coincide with Home Health visit and or with Nursing staff at Rehab 4. If skin reddening or irritation of skin occurs, or excessive drainage, please notify the Cardiovascular Surgeons office at [phone]. 5. Light showering is permissible; however the pump should be disconnected and placed in safe location, where it will not get wet. The dressing should not be exposed to direct spray or submerged in water. No bath tub / shower only. Ensure the end of the tubing attached to the dressing is facing down so that water does not enter the top of the tube. 6. To remove Prevena dressing: press purple button to turn off device / remove the suction. Then disconnect the tubing from the pump. The fixation strips should be stretched away from the skin and the dressing lifted at one corner and peeled back until it has been fully removed. 7. After removal, it is ok to shower daily using liquid dial soap and clean wash cloth, rinse and pat dry, and leave incision open to air dry. For any concerns regarding Prevena dressing, and or wounds, please contact Lisa Casas, patient navigator at [phone] or notify the Cardiovascular Surgeons office at [phone]. Incentive spirometry Q1 hr x 10, while awake, also use acapella device hourly whole awake Sternal Breast Bone Precautions: NO pushing or pulling, ( pt must use sternal pillow to support chest with all activities and with coughing ( takes up to 3 months breast bone to heal ) Daily incision care: ok to shower daily, no tub bath. Wash all incisions with liquid dial soap, clean wash cloth to each site, rinse and pat dry. Observe for any signs of infection, such as drainage which is dark yellow, richter, green or foul smelling. Immediately report to the surgeon any drainage from the chest incision, or legs, and for any abnormal drainage from the chest tube sites. Notify surgeon if any temp >101.5 degrees F. When specialty dressing removed/ or if you do not have one, continue to shower daily as above, then rinse and pat incision dry and paint with betadine daily x 5 days. Allow steri strips to fall off if you have any. Avoid lotions, creams, salves, oils, etc. for the first month Please see attached forms for additional instructions regarding post Open Heart specialty wound vacuum dressings. STEVE or Prevena , Dressing to be removed by Nursing staff on __03/26/[address] Silva patients , please obtain CBC, BMP, PA & Lat CXR in 2 weeks, results to Dr. Silva ( prescription will be given) ( ) (Tele: [phone]) , Valve replacement pts will need 2decho in 2 weeks with results to Dr. Silva . Please obtain 2 d echo at your endocrinology teacher office if possible F/U appointment: as per DC instructions: PCP in 2 weeks, CV surgeon 2 weeks, Cleaning Handyman 3-4 weeks For any questions regarding incisions/ dressing / meds / post op care or above Symptoms, Sunday 8am-5pm Heart & Vascular Surgery Office ( Dr. Betts & Dr. Silva), After Hours / Nights (5pm -8am) Weekends and Holidays Please call [facility] ([facility]) Charge Nurse - Case Management Consult Yes - Certification I have seen patient Julio Cesar Alcantara on 03/20/18. My clinical findings support the need for the requested home health care services because: Deconditioned with increased weakness I certify that my clinical findings support that this patient is homebound because: Post-op weakness (6) Coronary artery disease Qualifiers: Coronary Disease-Associated Artery/Lesion type: [place] artery
--- NOTE | 2018-03-20 11:22 | P.DIET ---
Nutritional Evaluation Screening comments: MDC for diet education s/p CABG x 4 (03/19) received. Patient Navigator to provide education. Consult RD if complexities with diet education arise.
[2018-03-20] MEDS: Insulin NovoLOG Aspart Correctional Sugar Inj SQ SCH ×4 (11:53→22:54)
--- NOTE | 2018-03-20 20:00 | ECG ---
Date Performed: 03/20/2018 Time Performed: 18:03:34 PTAGE: 78 years EKG: Sinus rhythm Short RI interval Possible inferior infarct - age undetermined Diffuse ST elevation consider pericar ditis Low QRS voltages in precordial leads Abnormal ECG PREVIOUS TRACING : 03/14/2018 10.51 Compared to previous tracing, QRS voltage has decreased dif fusely, diffuse ST elevation is now present. DOCTOR: Tevin Ybarra Interpretating Date/Time 03/20/2018 19:59:38
[2018-03-20] MEDS: Metoprolol Tartrate 25 MG Tablet PO SCH (21:32)
[2018-03-20] MEDS: Docusate Sodium 100 MG Capsule PO SCH (21:33)
[2018-03-21] MEDS: Insulin NovoLOG Aspart Correctional Sugar Inj SQ SCH ×6 (04:55→21:46)
[2018-03-21] MEDS ORDERED: D5W BOLUS OVER IV.SIG ONE (05:00)
[2018-03-21] MEDS ORDERED: Magnesium Sulfate Inj 2 GM in Sodium Chlor 0.9% Inj 96 ML IV.SIG ONE (05:00)
[2018-03-21] MEDS ORDERED: AMIODARONE IV.SIG ONE (05:00)
[2018-03-21] MEDS: Amiodarone 200 MG Tablet PO SCH ×3 (07:51→21:43)
[2018-03-21 07:58] LABS: Baso % (Auto) 0.1 % (0.0-2.0); Hematocrit 32.5 % (39.0-51.0); Hemoglobin 10.9 gm/dL (13.0-17.0); Lymph # (Auto) 2.3 th/mm3 (1.0-4.8); Lymph % (Auto) 11.5 % (9.0-44.0); Mean Corpuscular HGB Conc 33.4 % (32.0-36.0); Mean Corpuscular Hemoglobin 30.9 pg (27.0-34.0); Mean Corpuscular Volume 92.5 fL (80.0-100.0); Mean Platelet Volume 7.9 fL (7.0-11.0); Mono # (Auto) 1.3 th/mm3 (0.0-0.9); Mono % (Auto) 6.4 % (0.0-8.0); Neut # (Auto) 16.4 th/mm3 (1.8-7.7); Platelet Count 176 th/mm3 (150-450); Red Blood Count 3.51 mil/mm3 (4.50-5.90); Red Cell Distribution Width 13.8 % (11.6-17.2)
[2018-03-21 08:17] LABS: Calcium 7.9 mg/dL (8.5-10.1); Magnesium 3.5 mg/dL (1.5-2.5); Potassium 4.1 meq/L (3.5-5.1)
[2018-03-21] MEDS: Multivitamin/Minerals Therapeutic Tablet PO SCH (09:28)
[2018-03-21] MEDS: Docusate Sodium 100 MG Capsule PO SCH ×2 (09:28→20:56)
[2018-03-21] MEDS: Polyethylene Glycol 3350 17 GM Packet PO SCH (09:28)
[2018-03-21] MEDS: Metoprolol Tartrate 25 MG Tablet PO SCH ×2 (09:29→20:56)
--- NOTE | 2018-03-21 10:44 | P.PNCV ---
- Note Subjective/Hospital Course: 78-year-old male patient of Dr. Phillip Keating, Dr. Abernathy, who was initially seen 03/06/18. Hx exertional dyspnea and chest pain, HX of cardiac murmur He did undergo further evaluation which showed an ejection fraction of 50%, left main disease of 70%, diagonal 70%, the circumflex was 80%, the RCA was 100% filling from the left to right with collaterals. His aortic valve area of 0.76 , pulmonary capillary wedge pressure of 10, PA pressure of 33/20, with a mean of 13, RV pressures of 33, RA pressures of 2. We were consulted due to severe aortic stenosis for aortic valve replacement and coronary artery bypass grafting. PAST MEDICAL HISTORY: Significant for aortic stenosis, coronary artery disease, hypertension, history of CVA approximately 20-30 years ago. He had some issues with some short-term memory, but he does make his own decisions. He still drives. He has no weakness in either of his extremities. pt declined immediate surgery, and wanted to go home, and re-evaluate timing for surgery, he was later seen in the office by Dr Silva re-evaluated for CABG possible AVR 03/19 pt electively admitted for surgery Date of procedure: 03/19/18 Procedure: AVR with a 21 Whitmore pericardial valve CABG x 4 CAVANAUGH to LAD - good SVG to PDA - good SVG to OM1 - good SVG tr D1 - good KANDY L EVH Implants: 21 Whitmore Pericardial tissue valve extubated after surgery 03/20 up in chair on 6 liter simple face mask , wean 02 as tolerated gentle diuresis , weaning off dopamine, start low dose BB this evening OOB , PT transfer to stepdown 03/21 pt now on 2 liter nasal cannula went into Afib last pm / Luis Alfredo score 7 bolused with 150mg IV amiodarone , po dose increased, then converted back to NSR WBC noted / no fevers, will monitor continue pulm toileting Objective: Vital Signs - 24 hr 03/20/18 11:00 03/20/18 13:33 03/20/18 13:53 Temperature 98.0 F 97.9 F Pulse Rate 91 H 89 90 Respiratory Rate 16 18 18 Blood Pressure 141/9 H 146/87 H Pulse Oximetry 99 97 03/20/18 14:00 03/20/18 15:00 03/20/18 15:14 Temperature 97.8 F Pulse Rate 90 101 H 91 H Respiratory Rate 18 Blood Pressure 134/84 Pulse Oximetry 93 L 03/20/18 16:00 03/20/18 17:00 03/20/18 18:00 Temperature Pulse Rate 94 H 96 H 92 H Respiratory Rate Blood Pressure Pulse Oximetry 03/20/18 19:00 03/20/18 19:29 03/20/18 19:30 Temperature 98.1 F Pulse Rate 93 H 91 H Respiratory Rate 18 18 Blood Pressure 136/85 Pulse Oximetry 95 96 03/20/18 20:00 03/20/18 21:00 03/20/18 22:00 Temperature Pulse Rate 88 129 H 121 H Respiratory Rate Blood Pressure Pulse Oximetry 95 03/20/18 23:00 03/21/18 00:00 03/21/18 01:00 Temperature 97.9 F Pulse Rate 110 H 129 H 120 H Respiratory Rate 20 Blood Pressure 119/67 Pulse Oximetry 91 L 03/21/18 02:00 03/21/18 03:00 03/21/18 04:00 Temperature 97.9 F Pulse Rate 107 H 125 H 115 H Respiratory Rate 18 Blood Pressure 102/72 Pulse Oximetry 94 L 03/21/18 05:00 03/21/18 06:00 03/21/18 07:00 Temperature 98.0 F Pulse Rate 103 H 106 H 87 Respiratory Rate 18 Blood Pressure 130/67 Pulse Oximetry 95 03/21/18 08:00 03/21/18 08:55 03/21/18 09:00 Temperature Pulse Rate 85 77 87 Respiratory Rate 15 Blood Pressure Pulse Oximetry 94 L GENERAL: A&O x 3 SKIN: Warm and dry. prevena dressing to chest , incision intact to left leg HEAD: Normocephalic. EYES: No scleral icterus. No injection or drainage. NECK: Supple, trachea midline. No JVD or lymphadenopathy. CARDIOVASCULAR: Regular rate and rhythm without murmurs, gallops, or rubs. episode of afib RESPIRATORY: Breath sounds equal bilaterally. No accessory muscle use. GASTROINTESTINAL: Abdomen soft, non-tender, nondistended. MUSCULOSKELETAL: No cyanosis, or edema. BACK: Nontender without obvious deformity. No CVA tenderness. Labs: Laboratory Results - last 12 hr 03/21/18 03/21/18 06:43 06:43 WBC 20.0 H RBC 3.51 L Hgb 10.9 L Hct 32.5 L MCV 92.5 MCH 30.9 MCHC 33.4 RDW 13.8 Plt Count 176 MPV 7.9 Neut % (Auto) 82.0 H Lymph % (Auto) 11.5 Winkler % (Auto) 6.4 Eos % (Auto) 0.0 Baso % (Auto) 0.1 Neut # (Auto) 16.4 H Lymph # (Auto) 2.3 Winkler # (Auto) 1.3 H Eos # (Auto) 0.0 Baso # (Auto) 0.0 WBC Differential . Differential Comment Auto diff final Sodium 136 Potassium 4.1 Chloride 103 Carbon Dioxide 25.0 Anion Gap 8 BUN 35 H Creatinine 1.07 Estimated GFR 67 L Random Glucose 122 H Calcium 7.9 L Magnesium 3.5 H D Result Diagrams: 03/21/18 06:43 03/21/18 06:43 - Plan (2) Diastolic CHF Plan: gentle diuresis (5) S/P CABG x 4 Plan: ASA, statin , BB ambulate, leave chest tube in for now pulm toileting (6) Coronary artery disease Plan: ASA, statin, BB , amiodarone gentle diuresis OOB, wean 02 as tolerated transfer to [facility] for [facility] [place] [place] Brother who lives in [facility] (8) Afib Plan: on amiodarone luis alfredo score 7 converted back to NSR (6) Coronary artery disease Qualifiers: Coronary Disease-Associated Artery/Lesion type: [place] artery
[2018-03-21] MEDS ORDERED: Metoprolol Tartrate 25 MG Tablet PO ONE (11:30)
[2018-03-22] MEDS: Amiodarone 200 MG Tablet PO SCH ×3 (05:33→21:03)
[2018-03-22 06:17] LABS: Hematocrit 29.6 % (39.0-51.0); Hemoglobin 10.1 gm/dL (13.0-17.0); Mean Corpuscular HGB Conc 34.3 % (32.0-36.0); Mean Corpuscular Volume 90.4 fL (80.0-100.0); Mean Platelet Volume 7.7 fL (7.0-11.0); Platelet Count 145 th/mm3 (150-450); Red Blood Count 3.27 mil/mm3 (4.50-5.90); Red Cell Distribution Width 13.8 % (11.6-17.2); White Blood Count 16.5 th/mm3 (4.0-11.0)
[2018-03-22 06:44] LABS: Calcium 7.8 mg/dL (8.5-10.1); Carbon Dioxide 27.4 meq/L (21.0-32.0)
[2018-03-22] MEDS: Insulin NovoLOG Aspart Correctional Sugar Inj SQ SCH ×4 (08:00→21:05)
[2018-03-22] MEDS: Polyethylene Glycol 3350 17 GM Packet PO SCH (09:58)
[2018-03-22] MEDS: Metoprolol Tartrate 25 MG Tablet PO SCH ×2 (09:59→21:03)
[2018-03-22] MEDS: Multivitamin/Minerals Therapeutic Tablet PO SCH (09:59)
[2018-03-22] MEDS: Docusate Sodium 100 MG Capsule PO SCH (09:59)
--- NOTE | 2018-03-22 14:05 | P.DS ---
Date of admission: 03/19/18 05:15 Primary care physician: Anthony Keating DO Attending physician on discharge: Vandana Silva Anticipated date of discharge: 03/23/18 Brief History from admission: 78-year-old male patient of Dr. Phillip Keating, Dr. Abernathy, who was initially seen 03/06/18. Hx exertional dyspnea and chest pain, HX of cardiac murmur He did undergo further evaluation which showed an ejection fraction of 50%, left main disease of 70%, diagonal 70%, the circumflex was 80%, the RCA was 100% filling from the left to right with collaterals. His aortic valve area of 0.76 , pulmonary capillary wedge pressure of 10, PA pressure of 33/20, with a mean of 13, RV pressures of 33, RA pressures of 2. We were consulted due to severe aortic stenosis for aortic valve replacement and coronary artery bypass grafting. PAST MEDICAL HISTORY: Significant for aortic stenosis, coronary artery disease, hypertension, history of CVA approximately 20-30 years ago. He had some issues with some short-term memory, but he does make his own decisions. He still drives. He has no weakness in either of his extremities. pt declined immediate surgery, and wanted to go home, and re-evaluate timing for surgery, he was later seen in the office by Dr Silva re-evaluated for CABG possible AVR DS: Diagnosis - Discharge Diagnosis (1) Aortic stenosis Status: Chronic (2) Diastolic CHF Status: Chronic (3) Dyspnea Status: Chronic (4) S/P AVR (aortic valve replacement) Status: Acute (5) S/P CABG x 4 Status: Acute (6) Coronary artery disease Status: Chronic (7) History of CVA (cerebrovascular accident) Status: Chronic (8) Afib Status: Acute DS: Medications - Discharge Medications Prescriptions: oxycodone-acetaminophen 1 tab PO Q4HR #40 tab amiodarone 400 mg PO Q12HR #42 tab docusate sodium [DOK] 100 mg PO DAILY PRN #30 cap PRN Reason: Constipation metoprolol tartrate 25 mg PO BID #60 tab mckhpupc-szhd-FQ-calcium-mins [Thera M Plus (ferrous fumarat)] 1 tab PO DAILY # 30 tab DS: Summary Hospital Course: 03/19 pt electively admitted for surgery Date of procedure: 03/19/18 Procedure: AVR with a 21 Whitmore pericardial valve CABG x 4 CAVANAUGH to LAD - good SVG to PDA - good SVG to OM1 - good SVG tr D1 - good KANDY L EVH Implants: 21 Whitmore Pericardial tissue valve extubated after surgery 03/20 up in chair on 6 liter simple face mask , wean 02 as tolerated gentle diuresis , weaning off dopamine, start low dose BB this evening OOB , PT transfer to stepdown 03/21 pt now on 2 liter nasal cannula went into Afib last pm / Luis Alfredo score 7 bolused with 150mg IV amiodarone , po dose increased, then converted back to NSR WBC noted / no fevers, will monitor continue pulm toileting 03/22 pt remains in NSR, no further Afib gentle diuresis + BM, ambulating well Brother would like him to go to SNF near him in [facility] working on placement - Time Spent with Patient Total time spent providing and/or coordinating discharge services: Greater than 30 minutes Exam Vital signs: Vital Signs 03/21/18 15:00 03/21/18 16:00 03/21/18 17:00 Temperature 98.4 F Pulse Rate 86 80 88 Respiratory Rate 18 Blood Pressure 118/62 Pulse Oximetry 96 03/21/18 18:00 03/21/18 19:00 03/21/18 19:53 Temperature 98.3 F Pulse Rate 94 H 100 H 90 Respiratory Rate 20 16 Blood Pressure 139/79 Pulse Oximetry 93 L 03/21/18 19:55 03/21/18 20:00 03/21/18 21:00 Temperature Pulse Rate 90 92 H Respiratory Rate Blood Pressure Pulse Oximetry 94 L 03/21/18 22:00 03/21/18 23:00 03/22/18 00:00 Temperature 97.8 F Pulse Rate 84 75 76 Respiratory Rate 20 Blood Pressure 98/65 L Pulse Oximetry 97 03/22/18 01:00 03/22/18 02:00 03/22/18 03:00 Temperature 98.3 F Pulse Rate 86 78 79 Respiratory Rate 20 Blood Pressure 132/82 Pulse Oximetry 95 03/22/18 04:00 03/22/18 05:00 03/22/18 06:00 Temperature Pulse Rate 74 75 79 Respiratory Rate Blood Pressure Pulse Oximetry 03/22/18 07:00 03/22/18 07:44 Temperature 98.8 F Pulse Rate 79 77 Respiratory Rate 18 16 Blood Pressure 141/78 H Pulse Oximetry 93 L 93 L Intake & Output 03/21/18 03/22/18 03/22/18 18:59 06:59 18:59 Intake Total 1025 / 1025 Output Total 650 / 650 815 / 815 Balance 375 / 375 -815 / -815 Weight 74 kg Intake: Oral 1025 / 1025 Output: Urine 500 / 500 775 / 775 Chest Tube Drainage 150 / 150 40 / 40 #2 Anterior 150 / 150 40 / 40 Other: # Voids 4 # Incontinent Bowel Movements 2 - Constitutional no acute distress - Routine HEENT Exam Head: Present: normocephalic, atraumatic Eye: Present: EOMI, PERRL, normal accommodation - Routine Neck Exam Present: supple, full ROM - Routine Chest/Breast/Axilla Exam Chest wall: Present: tenderness - Routine Respiratory Exam Present: CTA bilaterally - Routine Cardiovascular Exam Present: RRR, S1, S2 - Routine Abdominal Exam Present: soft, normoactive bowel sounds - Routine Extremities Exam Present: full ROM, pulses intact, normal capillary refill - Routine Skin Exam Present: intact, wounds Comments: prevena dressing to chest ecchymosis left groin left EVH site intact and well approximated - Routine Neurological Exam Present: alert, oriented X3, CN II-XII intact Results Procedures completed during hospitalization: Date of procedure: 03/19/18 Procedure: AVR with a 21 Whitmore pericardial valve CABG x 4 CAVANAUGH to LAD - good SVG to PDA - good SVG to OM1 - good SVG tr D1 - good KANDY L EVH Labs on day of discharge: Labs from last 24 hours 03/22/18 03/22/18 03/22/18 12:11 07:32 05:45 WBC RBC Hgb Hct MCV MCH MCHC RDW Plt Count MPV Sodium 137 Potassium 4.0 Chloride 103 Carbon Dioxide 27.4 Anion Gap 7 BUN 25 H Creatinine 1.03 Estimated GFR 70 L POC Glucose 172 H 103 Random Glucose 100 Calcium 7.8 L MTS Gel Crossmatch 03/22/18 03/21/18 03/21/18 05:45 21:01 16:40 WBC 16.5 H RBC 3.27 L Hgb 10.1 L Hct 29.6 L MCV 90.4 MCH 31.0 MCHC 34.3 RDW 13.8 Plt Count 145 L MPV 7.7 Sodium Potassium Chloride Carbon Dioxide Anion Gap BUN Creatinine Estimated GFR POC Glucose 137 H 119 H Random Glucose Calcium MTS Gel Crossmatch 03/19/18 06:05 WBC RBC Hgb Hct MCV MCH MCHC RDW Plt Count MPV Sodium Potassium Chloride Carbon Dioxide Anion Gap BUN Creatinine Estimated GFR POC Glucose Random Glucose Calcium MTS Gel Crossmatch See Detail - Impressions ITS Impressions Chest X-Ray 03/20/18 05:00 CONCLUSION: Mild atelectasis at the lung bases. Left chest tube remains present and no pneumothorax is visualized. Discharge Plan - Discharge Disposition Patient Disposition: 03 Discharge to SNF - Discharge Condition Condition: Good - Discharge Order Discharge Orders: Discharge Order (Routine); Ordered 03/23/18 Ordered By: Sunshine Ferrara - Discharge Details Anticipated Discharge Date: 03/23/18 Discharge Comment: when cleared by Dr Betts - Physicians Team Primary Care Provider: Anthony Keating Attending Provider: Vandana Silva Other Providers: Jose Abernathy MD - Rxs /Orders / Referrals /Forms Prescriptions: New amiodarone 200 mg Tablet 400 mg PO Q12HR Qty: 42 RF: 0 docusate sodium [DOK] 100 mg Capsule 100 mg PO DAILY PRN (Reason: Constipation) Qty: 30 RF: 0 metoprolol tartrate 25 mg Tablet 25 mg PO BID Qty: 60 RF: 2 qcndusrh-dwim-VP-calcium-mins [Thera M Plus (ferrous fumarat)] 9 mg iron-400 mcg Tablet 1 tab PO DAILY Qty: 30 RF: 2 oxycodone-acetaminophen 5-325 mg Tablet 1 tab PO Q4HR Qty: 40 RF: 0 Continue aspirin [Aspirin Low Dose] 81 mg Tablet,Delayed Release (Dr/Ec) 81 mg PO DAILY atorvastatin 40 mg Tablet 80 mg PO HS RF: 0 coenzyme Q10 [CoQ-10] 100 mg Capsule 200 mg PO DAILY Discontinued isosorbide mononitrate 30 mg Tablet Extended Release 24 Hr 30 mg PO DAILY Ambulatory Orders / Order Sets / DME: Echo 2D Comp with doppler (Routine) Timeframe: 2 Weeks Location: Determined by Patient Ordered By: Sunshine Ferrara XR chest 2V PA&LAT (Routine) Timeframe: 2 Weeks Location: Determined by Patient Ordered By: Sunshine Ferrara Basic Metabolic Panel (Routine) Timeframe: 2 Weeks Location: Determined by Patient Ordered By: Sunshine Ferrara Complete Blood Count NO Diff (Routine) Timeframe: 2 Weeks Location: Determined by Patient Ordered By: Sunshine Ferrara Referrals: Sunshine Ferrara [ADVANCE RN PRACTITIONER] - See Instructions ( Your appointment has been scheduled for [04/04/18] at [10:30 am] If you cannot make this appointment, please call the office to reschedule ) Jose Abernathy MD [Physician] - See Instructions ([facility] at Dr Abernathy's office will call you with appt) Anthony Keating DO [Primary Care Provider] - See Instructions ( Your appointment has been scheduled for [03/28/18] at [10:40 am] If you cannot make this appointment, please call the office to reschedule ) - Discharge Instructions Patient Printed Instructions: Coronary Artery Bypass Graft (DC) Additional Instructions: PREVENA Single Use Negative Wound Therapy System Caregiver Instruction Sheet 1. A Prevena dressing system was applied to the chest incision during surgery , to promote wound healing. It works via a suction device (negative pressure wound therapy) to remove low to moderate levels of exudate (drainage) and infectious materials. We recommend that the device stay in place for up to seven days, from day of surgery. 2. Day of Surgery__03/19/18 Day of Removal ____03/26/18 3. The dressing should only be removed by a health aged or disabled carer. Please arrange removal of device to coincide with Home Health visit and or with Nursing staff at Rehab 4. If skin reddening or irritation of skin occurs, or excessive drainage, please notify the Cardiovascular Surgeons office at [phone]. 5. Light showering is permissible; however the pump should be disconnected and placed in safe location, where it will not get wet. The dressing should not be exposed to direct spray or submerged in water. No bath tub / shower only. Ensure the end of the tubing attached to the dressing is facing down so that water does not enter the top of the tube. 6. To remove Prevena dressing: press purple button to turn off device / remove the suction. Then disconnect the tubing from the pump. The fixation strips should be stretched away from the skin and the dressing lifted at one corner and peeled back until it has been fully removed. 7. After removal, it is ok to shower daily using liquid dial soap and clean wash cloth, rinse and pat dry, and leave incision open to air dry. For any concerns regarding Prevena dressing, and or wounds, please contact Lisa Casas, patient navigator at [phone] or notify the Cardiovascular Surgeons office at [phone]. Incentive spirometry Q1 hr x 10, while awake, also use acapella device hourly whole awake Sternal Breast Bone Precautions: NO pushing or pulling, ( pt must use sternal pillow to support chest with all activities and with coughing ( takes up to 3 months breast bone to heal ) Daily incision care: ok to shower daily, no tub bath. Wash all incisions with liquid dial soap, clean wash cloth to each site, rinse and pat dry. Observe for any signs of infection, such as drainage which is dark yellow, richter, green or foul smelling. Immediately report to the surgeon any drainage from the chest incision, or legs, and for any abnormal drainage from the chest tube sites. Notify surgeon if any temp >101.5 degrees F. When specialty dressing removed/ or if you do not have one, continue to shower daily as above, then rinse and pat incision dry and paint with betadine daily x 5 days. Allow steri strips to fall off if you have any. Avoid lotions, creams, salves, oils, etc. for the first month Please see attached forms for additional instructions regarding post Open Heart specialty wound vacuum dressings. STEVE or Prevena , Dressing to be removed by Nursing staff on __03/26/[address] Silva patients , please obtain CBC, BMP, PA & Lat CXR in 2 weeks, results to Dr. Silva ( prescription will be given) ( ) (Tele: [phone]) , Valve replacement pts will need 2decho in 2 weeks with results to Dr. Silva . Please obtain 2 d echo at your construction craft laborer office if possible F/U appointment: as per DC instructions: PCP in 2 weeks, CV surgeon 2 weeks, Unit Assistant 3-4 weeks For any questions regarding incisions/ dressing / meds / post op care or above Symptoms, Sunday 8am-5pm Heart & Vascular Surgery Office ( Dr. Betts & Dr. Silva), After Hours / Nights (5pm -8am) Weekends and Holidays Please call [facility] Unit ([facility]) Charge Nurse
[2018-03-22] MEDS ORDERED: Docusate Sodium 100 MG Capsule PO PRN (21:00)
--- NOTE | 2018-03-22 21:35 | ECG ---
Date Performed: 03/21/2018 Time Performed: 10:21:46 PTAGE: 78 years EKG: CONSIDER ACUTE ST ELEVATION ID Sinus rhythm with PAC(s) Inferior infarct - age undetermined Lateral ST elevation, CONSIDER ACUTE INFARCT Low QRS voltages in precordial leads Abnormal ECG NO PREVIOUS TRACING DOCTOR: Rajendra aCldera Interpretating Date/Time 03/22/2018 21:34:28
[2018-03-22 23:39] VITALS: RESP 16
--- NOTE | 2018-03-23 03:35 | XR ---
EXAM DATE: 03/23/2018 6:00 AM EDT AGE/SEX: 78 years / Male INDICATIONS: Shortness of breath, possible pulmonary disease. CLINICAL DATA: This is the patient's subsequent encounter. Patient reports that signs and symptoms h ave been present for 4 - 6 days and indicates a pain score of 5/10. MEDICAL/SURGICAL HISTORY: Hypertension. Stroke. Aortic stenosis. Mitral regurgitation. Skin cancer. CABG. COMPARISON: C, CHEST 1V SINGLE AP, 03/20/2018. . FINDINGS: Previous chest tubes and left central line have been removed. Basilar airspace disease persists with small effusions. No pneumothorax. Previous sternotomy. Heart size stable. Previous aortic valve repla cement. CONCLUSION: Removal of central and left-sided chest tubes and left central line without pneumothorax. Basilar air space disease with small effusions remain. Electronically signed by: Bishop Connolly MD 03/23/2018 3:33 AM EDT
[2018-03-23] MEDS: Amiodarone 200 MG Tablet PO SCH ×2 (06:31→14:00)
[2018-03-23] MEDS: Insulin NovoLOG Aspart Correctional Sugar Inj SQ SCH ×2 (09:01→11:31)
[2018-03-23] MEDS: Metoprolol Tartrate 25 MG Tablet PO SCH (09:02)
[2018-03-23] MEDS: Multivitamin/Minerals Therapeutic Tablet PO SCH (09:02)
[2018-03-23] MEDS: Polyethylene Glycol 3350 17 GM Packet PO SCH (09:04)
--- NOTE | 2018-03-23 09:57 | P.PNCV ---
- Note Subjective/Hospital Course: 78-year-old male patient of Dr. Phillip Keating, Dr. Abernathy, who was initially seen 03/06/18. Hx exertional dyspnea and chest pain, HX of cardiac murmur He did undergo further evaluation which showed an ejection fraction of 50%, left main disease of 70%, diagonal 70%, the circumflex was 80%, the RCA was 100% filling from the left to right with collaterals. His aortic valve area of 0.76 , pulmonary capillary wedge pressure of 10, PA pressure of 33/20, with a mean of 13, RV pressures of 33, RA pressures of 2. We were consulted due to severe aortic stenosis for aortic valve replacement and coronary artery bypass grafting. PAST MEDICAL HISTORY: Significant for aortic stenosis, coronary artery disease, hypertension, history of CVA approximately 20-30 years ago. He had some issues with some short-term memory, but he does make his own decisions. He still drives. He has no weakness in either of his extremities. pt declined immediate surgery, and wanted to go home, and re-evaluate timing for surgery, he was later seen in the office by Dr Silva re-evaluated for CABG possible AVR 03/19 pt electively admitted for surgery Date of procedure: 03/19/18 Procedure: AVR with a 21 Whitmore pericardial valve CABG x 4 CAVANAUGH to LAD - good SVG to PDA - good SVG to OM1 - good SVG tr D1 - good KANDY L EVH Implants: 21 Whitmore Pericardial tissue valve extubated after surgery 03/20 up in chair on 6 liter simple face mask , wean 02 as tolerated gentle diuresis , weaning off dopamine, start low dose BB this evening OOB , PT transfer to stepdown 03/21 pt now on 2 liter nasal cannula went into Afib last pm / Luis Alfredo score 7 bolused with 150mg IV amiodarone , po dose increased, then converted back to NSR WBC noted / no fevers, will monitor continue pulm toileting 03/23 Clinically and hemodynamically stable Discharge Objective: Vital Signs - 24 hr 03/22/18 10:00 03/22/18 11:00 03/22/18 12:00 Temperature 98.9 F Pulse Rate 82 84 76 Respiratory Rate 18 Blood Pressure 112/66 Pulse Oximetry 03/22/18 13:00 03/22/18 14:00 03/22/18 15:00 Temperature 98.9 F Pulse Rate 74 71 76 Respiratory Rate 18 Blood Pressure 122/66 Pulse Oximetry 03/22/18 16:00 03/22/18 17:00 03/22/18 18:00 Temperature Pulse Rate 89 76 74 Respiratory Rate Blood Pressure Pulse Oximetry 03/22/18 19:00 03/22/18 23:00 03/23/18 00:00 Temperature 97.8 F 97.8 F Pulse Rate 91 H 69 70 Respiratory Rate 16 16 Blood Pressure 123/77 131/70 Pulse Oximetry 95 94 L 03/23/18 01:00 03/23/18 02:00 03/23/18 03:00 Temperature 98.1 F Pulse Rate 70 74 68 Respiratory Rate 16 Blood Pressure 114/73 Pulse Oximetry 94 L 03/23/18 04:00 03/23/18 05:00 03/23/18 05:56 Temperature Pulse Rate 70 71 74 Respiratory Rate Blood Pressure Pulse Oximetry 03/23/18 07:00 03/23/18 07:54 03/23/18 08:00 Temperature 97.5 F L Pulse Rate 73 75 86 Respiratory Rate 16 Blood Pressure 157/95 H Pulse Oximetry 96 03/23/18 09:00 Temperature Pulse Rate 120 H Respiratory Rate Blood Pressure Pulse Oximetry Labs: Laboratory Results - last 12 hr 03/23/18 08:01 POC Glucose 111 H Result Diagrams: 03/22/18 05:45 03/22/18 05:45 - Plan (2) Diastolic CHF Plan: gentle diuresis (5) S/P CABG x 4 Plan: ASA, statin , BB ambulate, leave chest tube in for now pulm toileting (6) Coronary artery disease Plan: ASA, statin, BB , amiodarone gentle diuresis OOB, wean 02 as tolerated transfer [facility] rehab at co / or co with Brother who lives in [facility] (8) Afib Plan: on amiodarone luis alfredo score 7 converted back to NSR (6) Coronary artery disease Qualifiers: Coronary Disease-Associated Artery/Lesion type: [place] artery
[2018-03-23 11:28] VITALS: BP 111/76
[2018-03-23 15:24] VITALS: TEMP 97.6; O2SAT 120
[2018-03-23 16:29] VITALS: PULSE 112
== END 2018-03-23 17:25 | disposition home health service (06) ==
LOC: HSDI 03-19 05:15 → HCVI 03-19 13:14 → HCPC 03-20 12:25 → HCVI 03-20 12:29 → HCPC 03-20 13:45
PROVIDERS: ADMIT Thoracic Surgery (Cardiothoracic Vascular Surgery); ATTEND Thoracic Surgery (Cardiothoracic Vascular Surgery)